=== PATIENT | female | born 1945 | race Caucasian/White ===

== ENCOUNTER → 2016-07-31 | Day surgery (SDC) | payer OTHER ==
[2016-07-30 08:32] VITALS: Ht 154.9 cm; Wt 86.4 kg
[~2016-07-31] VITALS: Ht 154.9 cm; Wt 86.4 kg
[~2016-07-31] MED LIST: 500ML BSS 0.3ML EPI 1:1000PF IRRIG ONE; ACETAMINOPHEN 325 MG TAB PO PRN; AMVISC PLUS 0.8ML SYRINGE INT OCU ONE; ASPI325T45 PO; BSS FLUSH ONE; CALTRATE PO; ENDOCOAT 0.85ML SYRINGE INT OCU ONE; EpINEphrine INJ 1MG/ML AMP 1 MG/ML AMP ONE; FENTANYL CITRATE INJ 50 MCG/1 ML 2 ML VIAL ONE; HYDR25TA4 PO; HydrALAZINE HCL 20 MG/ML VIAL ONE; KETO0.5S33 OPL; LACTATED RINGER'S 1000ML 500 ML IV SCH; LIDOCAINE 4% OP SOLN DROP CHARGE ONE; LIDOCAINE 4% OP SOLN DROP CHARGE OPL SCH; LIDOCAINE HCL 1% MPF 2 ML VIAL ONE; LOSA1TAB38 PO; MIDAZOLAM HCL 1 MG/ML 2ML VIAL ONE; MIX: 4ML BSS 1ML EPI 1:1000 PF TOP ONE; MOXIFLOXACIN OPH SOLN PER DROP CHARGE ONE; OMEG10007 PO; POTA10CA28 PO; POVIDONE-IODINE OP SOLN 30 ML BTL ONE; PRED1SUS3 OPL; PRLSR20 PO; PROPARACAINE 0.5% OP SOLN PER DROP CHARGE OPL SCH; SIMV20TA2 PO; TOBRAMYCIN/DEXAMETHASONE OPH OINT PER APPLN CHARGE ONE; [UNRECOGNIZED DRUG - OTHER] PO
[2016-07-31] MEDS: PHENYLEPHRINE HCL 2.5% OP SOLN PER DROP CHARGE OPL SCH ×3 (07:26→07:36)
[2016-07-31] MEDS: TROPICAMIDE 1% OP SOLN PER DROP CHARGE OPL SCH ×3 (07:27→07:37)
[2016-07-31] MEDS: CYCLOPENTOLATE HCL 1% OP SOLN PER DROP CHARGE OPL SCH ×3 (07:28→07:38)
[2016-07-31] MEDS: MOXIFLOXACIN OPH SOLN PER DROP CHARGE OPL SCH ×3 (07:29→07:39)
--- NOTE | 2016-07-31 07:32 | History & Physical Bridge - SC ---
H&P Re-Evaluation Bridge Note: I have examined the patient, reviewed the History & Physical and in the interval since the performance of the History & Physical I have noted the following changes of clinical significance: No changes noted. Left eye cataract surgery.
--- NOTE | 2016-07-31 08:47 | [facility] Post Operative Brief Note ---
Immediate Operative Summary Operative Date July 31, 2016. Pre-Operative Diagnosis Left Eye Cataract Post-Operative Diagnosis Same Procedure(s) Performed Left Cataract Phacoemulsification With Intraocular Lens Implant Surgeon Dr. Suze Dennison Aircraft Structural Repair Mechanic Surgeon(s) none Estimated Blood Loss 0 Findings left cataract Specimens None Complication(s) None Disposition
--- NOTE | 2016-07-31 08:48 | [facility] Operative Report ---
Operative Report Date of Service July 31, 2016. Operative Report Phaco with monofocal IOL DATE OF OPERATION: 07/31/16 PREOPERATIVE DIAGNOSIS: Senile nuclear cataract, left eye POSTOPERATIVE DIAGNOSIS: Senile nuclear cataract, left eye PROCEDURE PERFORMED: Phacoemulsification with intraocular lens implantation, left eye SURGEON: Dr. Diaz Dennison ANESTHESIA: Topical with 1% intracameral lidocaine and monitored anesthesia care COMPLICATIONS: None DESCRIPTION OF PROCEDURE: After positively identifying the patient both verbally and by wristband in the preoperative area, the left eye was marked as the operative eye. The patient was then brought back to the operating room by the anesthesia and nursing staff where they were given a drop of Lidocaine and betadine into the operative eye. They were then sterilely prepped and draped in the standard fashion typical for ophthalmic surgery. Steri-strips were placed along the upper eyelids to keep the lashes back, and a lid speculum was placed into the operative eye. At this point, a documented time out was performed with members of the ophthalmology, nursing, and anesthesia staffs all agreeing upon the correct patient, correct location for surgery, correct procedure, and correct type and power of intraocular lens to be implanted. The microscope was then swung into position. First, a paracentesis wound was made using a sideport blade. Then, in sequence, 1% preservative-free lidocaine followed by Endocoat viscoelastic was injected into the anterior chamber. Next , the main incision was made with a keratome blade in triplanar fashion. A sharp cystotome was introduced into the eye and used to create a tear in the anterior capsule, which was directed into a continuous curvilinear capsulorrhexis using Utrata forceps. Hydrodissection was then performed with BSS on a flat-tip cannula. Next, the phacoemulsification handpiece was introduced into the eye and used to remove the nucleus in a murhdl-cen-wimpvck fashion. This was done without complication and then the irrigation-aspiration handpiece was introduced into the eye and used to remove all remaining cortical and epinuclear material. Amvisc was then injected into the anterior chamber as well as into the capsular bag and using the lens injector system, an MX60 19.0 D lens, serial number [id number], and expiration date 12/2018 was injected into the capsular bag and rotated into the correct position. Next, the irrigation- aspiration handpiece was used to remove all remaining Amvisc. BSS was used to hydrate the main wound, and then BSS was injected into the paracentesis site to reach physiologic pressure and then the main wound was checked and found to be watertight after adding Resure sealant. The patient was given drops of Vigamox and Tobradex ointment into the operative eye, and then the surrounding area was cleaned and dried. A clear plastic shield was placed over the eye and the patient was then sat up and taken from the operating room by the anesthesia staff having tolerated the procedure well and suffering no complications. DISPOSITION: The patient was returned to the recovery room in stable condition. I attest to the content of the Intraoperative Record and any orders documented therein. Any exceptions are noted below.
[2016-07-31 08:49] VITALS: TEMP 36.3
--- NOTE | 2016-07-31 08:49 | Discharge Instructions-SurgCtr ---
Discharge Instructions Date of Service July 31, 2016. Visit Reason for Visit: Left Cataract Discharge Discharge Diagnosis / Problem: left cataract Discharge Goals Goal(s): Decrease discomfort, Improve function Activity Recommendations Activity Limitations: as noted below Anesthesia . Post Anesthesia Instructions: If you have had General Anesthesia or IV Sedation: * Do not drive today. * Resume driving when surgeon permits. * Do not make important decisions or sign legal documents today. * Call surgeon for: 1. Temperature elevations greater than 101 degrees F. 2. Uncontrollable pain. 3. Excessive bleeding. 4. Persistent nausea and vomiting. 5. Medication intolerance (nausea, vomiting or rash). * For nausea and vomiting use only clear liquids such as: tea, soda, bouillon until nausea subsides, then gradually increase diet as tolerated. * If you have any concerns or questions, call your surgeon's office. If physician is unavailable and it is an emergency, call 911 or go to the nearest emergency room. . Instructions / Follow-Up Instructions / Follow-Up ACTIVITY RECOMMENDATIONS: * Light activities. * You may walk outside, read, watch television. * You may notice redness on the white part of the eye and some blurry vision - this is normal. MEDICATIONS: Resume previous medications unless instructed otherwise by your surgeon. Start all eye drops at 11 am today: * Eye drops (today): Prednisone - one drop in operative eye every 2 hours while awake Ofloxacin - one drop in operative eye every 2 hours while awake Ketorolac - one drop in operative eye four times daily SPECIAL CARE INSTRUCTIONS: * Tape plastic shield over eye to sleep at night. Call your doctor at with any concerns or problems. FOLLOW UP VISIT: Follow-up with Dr Dennison at [place] office as scheduled. Diet Recommendations Home Diet: no limitations Procedures Procedures Performed: Left Cataract Phacoemulsification With Intraocular Lens Implant Pending Studies Studies pending at discharge: no Medical Emergencies . Who to Call and When: Medical Emergencies: If at any time you feel your situation is an emergency, please call 911 immediately. . Non-Emergent Contact Non-Emergency issues call your: Surgeon . . "Provider Documentation" section prepared by Diaz Dennison. .
--- NOTE | 2016-07-31 09:05 | Anesthesia Progress Nt - [facility] ---
Anesthesia Post Op Note Date & Time July 31, 2016 at 09:05 Vital Signs Pain Intensity: 0 Vital Signs Past 12 Hours Date Time Temp Pulse Resp B/P Pulse Ox O2 Delivery O2 Flow Rate FiO2 07/31/16 08:49 36.3 64 16 134/64 98 Room Air 07/31/16 07:16 36.7 61 20 177/90 100 Room Air Notes Mental Status: alert / awake / arousable, participated in evaluation Pt Amnestic to Procedure: No (recall as expected) Nausea / Vomiting: adequately controlled Pain: adequately controlled Airway Patency, RR, SpO2: stable & adequate BP & HR: stable & adequate Hydration State: stable & adequate Anesthetic Complications: no major complications apparent Pt doing well.
[2016-07-31 09:15] VITALS: BP 130/62; PULSE 70; O2SAT 97
== END | disposition home or self-care (01) ==
LOC: X.SURG 07:02
PROVIDERS: ATTEND Ophthalmology
DX: H25.12 Age-related nuclear cataract, left eye (principal); I11.9 Hypertensive heart disease without heart failure; E78.00 Pure hypercholesterolemia, unspecified; Z83.3 Family history of diabetes mellitus; Z83.511 Family history of glaucoma; Z79.82 Long term (current) use of aspirin; G47.33 Obstructive sleep apnea (adult) (pediatric); M19.90 Unspecified osteoarthritis, unspecified site; Z90.49 Acquired absence of other specified parts of digestive tract; K21.9 Gastro-esophageal reflux disease without esophagitis; E66.9 Obesity, unspecified

== ENCOUNTER → 2016-08-14 | Day surgery (SDC) | payer OTHER ==
[2016-08-07 15:18] VITALS: Ht 154.9 cm; Wt 86.4 kg
[~2016-08-14] VITALS: Ht 154.9 cm; Wt 86.4 kg
[~2016-08-14] MED LIST changes: +ATROPINE SULFATE 0.1 MG/ML 5ML SYR IV PRN; +EpHEDrine SULFATE INJ 50 MG/ML AMP IV PRN; +FENTANYL CITRATE INJ 50 MCG/1 ML 2 ML VIAL IV PRN; +FLUMAZENIL 0.1 MG/1 ML 10 ML VIAL IV PRN; +HYDROmorphone INJ 2 MG/ML SYR/VIAL IV PRN; +LABETALOL HCL IV 5 MG/ML 20ML IV PRN; -LIDOCAINE 4% OP SOLN DROP CHARGE OPL SCH; +LIDOCAINE 4% OP SOLN DROP CHARGE OPR SCH; +MEPERIDINE HCL 25 MG/ML CARP IV PRN; +NALOXONE HCL 0.4 MG/1 ML VIAL/CARP IV PRN; +ONDANSETRON INJ 2 MG/ML 2 ML VIAL IV PRN; +ONDANSETRON INJ 2 MG/ML 2 ML VIAL ONE; +PHENYLEPHRINE 100MCG/ML 5ML SYR IV PRN; -PROPARACAINE 0.5% OP SOLN PER DROP CHARGE OPL SCH; +PROPARACAINE 0.5% OP SOLN PER DROP CHARGE OPR SCH
[2016-08-14] MEDS: PHENYLEPHRINE HCL 2.5% OP SOLN PER DROP CHARGE OPR SCH ×3 (09:17→09:27)
[2016-08-14] MEDS: TROPICAMIDE 1% OP SOLN PER DROP CHARGE OPR SCH ×3 (09:18→09:27)
[2016-08-14] MEDS: MOXIFLOXACIN OPH SOLN PER DROP CHARGE OPR SCH ×3 (09:20→09:29)
[2016-08-14] MEDS: CYCLOPENTOLATE HCL 1% OP SOLN PER DROP CHARGE OPR SCH ×3 (09:20→09:28)
--- NOTE | 2016-08-14 10:14 | History & Physical Bridge - SC ---
H&P Re-Evaluation Bridge Note: I have examined the patient, reviewed the History & Physical and in the interval since the performance of the History & Physical I have noted the following changes of clinical significance: No changes noted. Right eye cataract surgery.
--- NOTE | 2016-08-14 11:25 | [facility] Post Operative Brief Note ---
Immediate Operative Summary Operative Date August 14, 2016. Pre-Operative Diagnosis Cataract Right Eye Post-Operative Diagnosis Same Procedure(s) Performed Right Cataract Phacoemulsification With Intraocular Lens Implant Surgeon Dr. Dennison Principal Secretary Surgeon(s) None Estimated Blood Loss 0 Findings right cataract Specimens None Complication(s) None Disposition
--- NOTE | 2016-08-14 11:26 | [facility] Operative Report ---
Operative Report Date of Service August 14, 2016. Operative Report Phaco with monofocal IOL DATE OF OPERATION: 08/14/16 PREOPERATIVE DIAGNOSIS: Senile nuclear cataract, right eye POSTOPERATIVE DIAGNOSIS: Senile nuclear cataract, right eye PROCEDURE PERFORMED: Phacoemulsification with intraocular lens implantation, right eye SURGEON: Dr. Diaz Dennison ANESTHESIA: Topical with 1% intracameral lidocaine and monitored anesthesia care COMPLICATIONS: None DESCRIPTION OF PROCEDURE: After positively identifying the patient both verbally and by wristband in the preoperative area, the right eye was marked as the operative eye. The patient was then brought back to the operating room by the anesthesia and nursing staff where they were given a drop of Lidocaine and betadine into the operative eye. They were then sterilely prepped and draped in the standard fashion typical for ophthalmic surgery. Steri-strips were placed along the upper eyelids to keep the lashes back, and a lid speculum was placed into the operative eye. At this point, a documented time out was performed with members of the ophthalmology, nursing, and anesthesia staffs all agreeing upon the correct patient, correct location for surgery, correct procedure, and correct type and power of intraocular lens to be implanted. The microscope was then swung into position. First, a paracentesis wound was made using a sideport blade. Then, in sequence, 1% preservative-free lidocaine followed by Endocoat viscoelastic was injected into the anterior chamber. Next , the main incision was made with a keratome blade in triplanar fashion. A sharp cystotome was introduced into the eye and used to create a tear in the anterior capsule, which was directed into a continuous curvilinear capsulorrhexis using Utrata forceps. Hydrodissection was then performed with BSS on a flat-tip cannula. Next, the phacoemulsification handpiece was introduced into the eye and used to remove the nucleus in a rulwah-ofp-pklrdfu fashion. This was done without complication and then the irrigation-aspiration handpiece was introduced into the eye and used to remove all remaining cortical and epinuclear material. Amvisc was then injected into the anterior chamber as well as into the capsular bag and using the lens injector system, an MX60 20.0 D lens, serial number [id number], and expiration date 02/2019 was injected into the capsular bag and rotated into the correct position. Next, the irrigation- aspiration handpiece was used to remove all remaining Amvisc. BSS was used to hydrate the main wound, and then BSS was injected into the paracentesis site to reach physiologic pressure and then the main wound was checked and found to be watertight. The patient was given drops of Vigamox and Tobradex ointment into the operative eye, and then the surrounding area was cleaned and dried. A clear plastic shield was placed over the eye and the patient was then sat up and taken from the operating room by the anesthesia staff having tolerated the procedure well and suffering no complications. DISPOSITION: The patient was returned to the recovery room in stable condition. I attest to the content of the Intraoperative Record and any orders documented therein. Any exceptions are noted below.
[2016-08-14 11:27] VITALS: TEMP 36.4
--- NOTE | 2016-08-14 11:27 | Discharge Instructions-SurgCtr ---
Discharge Instructions Date of Service August 14, 2016. Visit Reason for Visit: Cataract Right Eye Discharge Discharge Diagnosis / Problem: right cataract Discharge Goals Goal(s): Decrease discomfort, Improve function Activity Recommendations Activity Limitations: as noted below Anesthesia . Post Anesthesia Instructions: If you have had General Anesthesia or IV Sedation: * Do not drive today. * Resume driving when surgeon permits. * Do not make important decisions or sign legal documents today. * Call surgeon for: 1. Temperature elevations greater than 101 degrees F. 2. Uncontrollable pain. 3. Excessive bleeding. 4. Persistent nausea and vomiting. 5. Medication intolerance (nausea, vomiting or rash). * For nausea and vomiting use only clear liquids such as: tea, soda, bouillon until nausea subsides, then gradually increase diet as tolerated. * If you have any concerns or questions, call your surgeon's office. If physician is unavailable and it is an emergency, call 911 or go to the nearest emergency room. . Instructions / Follow-Up Instructions / Follow-Up ACTIVITY RECOMMENDATIONS: * Light activities. * You may walk outside, read, watch television. * You may notice redness on the white part of the eye and some blurry vision - this is normal. MEDICATIONS: Resume previous medications unless instructed otherwise by your surgeon. Start all eye drops at 1:30 pm today: * Eye drops (today): Prednisone - one drop in operative eye every 2 hours while awake Ofloxacin - one drop in operative eye every 2 hours while awake Ketorolac - one drop in operative eye 4 times daily SPECIAL CARE INSTRUCTIONS: * Tape plastic shield over eye to sleep at night. Call your doctor at with any concerns or problems. FOLLOW UP VISIT: Follow-up with Dr Dennison at [facility] as scheduled. Diet Recommendations Home Diet: no limitations Procedures Procedures Performed: Right Cataract Phacoemulsification With Intraocular Lens Implant Pending Studies Studies pending at discharge: no Medical Emergencies . Who to Call and When: Medical Emergencies: If at any time you feel your situation is an emergency, please call 911 immediately. . Non-Emergent Contact Non-Emergency issues call your: Surgeon . . "Provider Documentation" section prepared by Diaz Dennison. .
[2016-08-14 12:10] VITALS: BP 117/56; PULSE 69; O2SAT 100
--- NOTE | 2016-08-14 12:24 | Anesthesia Progress Nt - [facility] ---
Anesthesia Post Op Note Date & Time August 14, 2016 at 12:24 Vital Signs Pain Intensity: 0 Vital Signs Past 12 Hours Date Time Temp Pulse Resp B/P Pulse Ox O2 Delivery O2 Flow Rate FiO2 08/14/16 12:10 69 20 117/56 100 Room Air 08/14/16 11:27 36.4 77 16 131/60 99 Room Air 08/14/16 09:10 36.6 64 16 191/84 100 Room Air Notes Mental Status: alert / awake / arousable, participated in evaluation Pt Amnestic to Procedure: Yes Nausea / Vomiting: adequately controlled Pain: adequately controlled Airway Patency, RR, SpO2: stable & adequate BP & HR: stable & adequate Hydration State: stable & adequate Anesthetic Complications: no major complications apparent
== END | disposition home or self-care (01) ==
LOC: X.SURG 08:55
PROVIDERS: ATTEND Ophthalmology
DX: H25.11 Age-related nuclear cataract, right eye (principal); I10 Essential (primary) hypertension; E78.00 Pure hypercholesterolemia, unspecified; Z79.899 Other long term (current) drug therapy

== ENCOUNTER 2018-10-07 11:17 | Observation (INO) ==
[~2018-10-07 11:17] MED LIST changes: -500ML BSS 0.3ML EPI 1:1000PF IRRIG ONE; -ACETAMINOPHEN 325 MG TAB PO PRN; -AMVISC PLUS 0.8ML SYRINGE INT OCU ONE; -ASPI325T45 PO; -ATROPINE SULFATE 0.1 MG/ML 5ML SYR IV PRN; -BSS FLUSH ONE; -CALTRATE PO; +CLINDAMYCIN 600 MG/54 ML BAG IV SCH; -ENDOCOAT 0.85ML SYRINGE INT OCU ONE; -EpHEDrine SULFATE INJ 50 MG/ML AMP IV PRN; -EpINEphrine INJ 1MG/ML AMP 1 MG/ML AMP ONE; -FENTANYL CITRATE INJ 50 MCG/1 ML 2 ML VIAL IV PRN; -FENTANYL CITRATE INJ 50 MCG/1 ML 2 ML VIAL ONE; -FLUMAZENIL 0.1 MG/1 ML 10 ML VIAL IV PRN; -HYDR25TA4 PO; -HYDROmorphone INJ 2 MG/ML SYR/VIAL IV PRN; -HydrALAZINE HCL 20 MG/ML VIAL ONE; -KETO0.5S33 OPL; -LABETALOL HCL IV 5 MG/ML 20ML IV PRN; -LACTATED RINGER'S 1000ML 500 ML IV SCH; -LIDOCAINE 4% OP SOLN DROP CHARGE ONE; -LIDOCAINE 4% OP SOLN DROP CHARGE OPR SCH; -LIDOCAINE HCL 1% MPF 2 ML VIAL ONE; -LOSA1TAB38 PO; +LR 15ML/HR IV SCH; -MEPERIDINE HCL 25 MG/ML CARP IV PRN; -MIDAZOLAM HCL 1 MG/ML 2ML VIAL ONE; -MIX: 4ML BSS 1ML EPI 1:1000 PF TOP ONE; -MOXIFLOXACIN OPH SOLN PER DROP CHARGE ONE; -NALOXONE HCL 0.4 MG/1 ML VIAL/CARP IV PRN; -OMEG10007 PO; -ONDANSETRON INJ 2 MG/ML 2 ML VIAL IV PRN; -ONDANSETRON INJ 2 MG/ML 2 ML VIAL ONE; -PHENYLEPHRINE 100MCG/ML 5ML SYR IV PRN; -POTA10CA28 PO; -POVIDONE-IODINE OP SOLN 30 ML BTL ONE; -PRED1SUS3 OPL; -PRLSR20 PO; -PROPARACAINE 0.5% OP SOLN PER DROP CHARGE OPR SCH; -SIMV20TA2 PO; -TOBRAMYCIN/DEXAMETHASONE OPH OINT PER APPLN CHARGE ONE; +VANCOMYCIN HCL 1,000 MG/270 ML BAG IV SCH; -[UNRECOGNIZED DRUG - OTHER] PO
--- NOTE | 2018-10-07 11:26 | History & Physical Bridge Note ---
Date of Service October 07, 2018 History & Physical Bridge Note I have examined the patient, reviewed the History & Physical and in the interval since the performance of the History & Physical I have noted the following changes of clinical significance: pt for dual chamber ppm; rediscussed procedure and consents obtained
--- NOTE | 2018-10-07 11:26 | Pre Anesthesia Assessment ---
Date of Service October 07, 2018 Pre Sedation Assessment Cardiovascular RRR, no murmur, no edema Respiratory normal respiratory effort, lungs clear to auscultation Pre-Sedation Airway Assessment Smoking Status: Never smoker Hx Sleep Apnea: No Hx Difficult Intubation: No Short, Thick Neck: No Thyromental Distance: < 3.5 Finger Breadths Oral Cavity: + WNL Mallampati Class: III ASA: ASA3 NPO Status Date of Last Intake of Fluids: 10/06/18 Date of Last Intake of Solid Food: 10/06/18 Procedure Planning Contraindications for Sedation: none Current Medications Reviewed: Yes Notes The planned sedation has been discussed with the patient. Informed Consent was obtained. I have identified the patient, determined the appropriateness of sedation and have assessed the patient immediately prior to the procedure. All medicine(s) and interventions are by my order.
[2018-10-07 12:07] LABS: INR 1.6 (0.9-1.1); Prothrombin Time 15.9 Seconds (9.0-12.0)
[2018-10-07] MEDS ORDERED: BACITRACIN INJ 50,000 UNIT VIAL ONE (12:40)
[2018-10-07] MEDS ORDERED: BUPIVACAINE 0.25% 30 ML VIAL ONE (12:40)
[2018-10-07] MEDS ORDERED: LIDOCAINE HCL 1% 20 ML VIAL ONE (12:40)
[2018-10-07] MEDS ORDERED: MIDAZOLAM HCL 5 MG/ML 1 ML VIAL ONE (12:58)
[2018-10-07] MEDS ORDERED: fentaNYL citrate 100 MCG/2 ML VIAL ONE ×2 (12:58→13:30)
[2018-10-07] MEDS ORDERED: MIDAZOLAM HCL 1 MG/ML 2ML VIAL ONE (13:30)
--- NOTE | 2018-10-07 14:19 | Operative Report ---
Post Operative Report Pre & Post Diagnosis TBS/SSS Operation Date: 10/07/18 15:00 <No data on this case meets the specified criteria> Procedure Operation Date: 10/07/18 15:00 Actual Procedures p Pacer with A/V Leads (Dual)(Left) - Bailee Cho DO s Venogram, Unilateral - Bailee Cho DO Surgeon Bailee Cho, Preschool Disability Teacher none Estimated Blood Loss 25 Findings Consistent with Post-Op Diagnosis Specimens None Description of Procedure see official report I attest to the content of the Intraoperative Record and any orders documented therein. Any exceptions are noted below.
--- NOTE | 2018-10-07 14:19 | Post Anesthesia Assessment ---
Date of Service October 07, 2018 Post Sedation Assessment Vital Signs Temp Pulse Resp BP Pulse Ox 10/07/18 11:55 36.6 C 64 14 157/71 H 99 Recovery Score Activity: Moves 4 extremities Respiration: Deep Breath/Cough Circulation: +/-20% PreAnes Value Consciousness: Fully Awake Oxygen Saturation: > 92% On Room Air Discharge Sedation Level of Care: Fast Track Phase II Post Sedation Plan On clinical assessment, the patient appears to have tolerated the sedation without complications. Patient is recovering as anticipated. Patient will continue to be monitored by nursing and may be discharged when sedation discharge criteria are met per below protocol. Upon Completions of procedure and additional 15 minutes continue every 5 minute vital signs and the P.A.R. score; then discharge to a Phase I or Fast Track to Phase II per the following guidelines: * Discharge Patient to appropriate Phase II area if PAR is 8 or greater or return to pre- procedure baseline. The post - procedure orders will be as directed. * If PAR score is less than 8 or not return to pre-procedure baseline then patient will follow Phase I monitoring till PAR is reached for Phase II. The Phase I may be done in procedure room or may call to secure a Phase I area. * If naloxone or flumazenil are used for reversal, hold in Phase I for continued monitoring from when last reversal dose was given for a minimum of 60 minutes or longer pending the nurse and/or physician discretion of patient condition before discharge to Phase II. Please call the Sedation Physician to re-evaluate and complete post-note for discharge to Phase II area. Do NOT discharge from procedure sedation or Phase 1 until post- sedation evaluation note is complete by procedure /sedation MD Sedation Discharge Instructions to be given to the patient at discharge to home.
[2018-10-07] MEDS ORDERED: FLUTICASONE PROPIONATE NA SPR 16 GM BTL NAE PRN (14:23)
[2018-10-07] MEDS ORDERED: LORATADINE 10 MG TAB PO PRN (14:23)
[2018-10-07] MEDS ORDERED: KETOROLAC 0.5% OP SOLN 5 ML BTL OPL PRN (14:23)
--- NOTE | 2018-10-07 14:26 | Discharge Summary ---
Date of Service October 08, 2018 Admission HPI Per Admitting Provider pt admitted for elective ppm due to TBS and SSS Admission Exam Per Admitting Provider aaox3, NAD NC/AT, EOMI Supple No JVD Nrl S1/S2, No murmur CTA b/l no w/r/r soft nt/nd no LE edema b/l skin intact no focal deficits Principal Diagnosis TBS s/p dual chamber ppm Discharge Exam aaox3, NAD NC/AT, EOMI Supple No JVD Nrl S1/S2, No murmur CTA b/l no w/r/r soft nt/nd no LE edema b/l skin intact no focal deficits left pectoral incision intact, no hematoma mild ecchymosis Discharge Data Allergies Allergy/AdvReac Type Severity Reaction Status Date / Time amoxicillin Allergy Unknown RASH Verified 10/06/18 14:39 erythromycin base Allergy Unknown RASH Verified 10/06/18 14:39 nitrofurantoin Allergy Unknown RASH Verified 10/06/18 14:39 sulfamethizole Allergy Unknown RASH Verified 10/06/18 14:39 adhesive AdvReac Unknown DIFFICULTY Verified 10/06/18 14:39 REMOVING AND LOCAL REDNESS Procedures Performed Operation Date: 10/07/18 15:00 Actual Procedures p Pacer with A/V Leads (Dual)(Left) - Bailee Cho DO s Venogram, Unilateral - Bailee Cho DO Ordered Studies CXR: No PTX, leads in position ECG: AP-VS PPM Interrogation POD#1: normal function and stable lead testing 10/07/18 07:15 EP Lab Images for PACS ONCE Hospital Course (1) Tachy-loli syndrome: (2) PAF (paroxysmal atrial fibrillation): Total Time Total Time Spent Total Time Spent (In Minutes): 30 Total Time Includes: Examination of the Patient, Discharge Planning, Medication Reconciliation and Other Discharge Plan Discharge Items Reason For Visit: Tachy/Loli Syndrome Discharge Diagnosis: TBS s/p dual chamber ppm Condition: Good Discharge Goals: Improve function Activity: As commented below Activity Comment: do not lift the left elbow over the left shoulder for 1 month Lifting: No more than 10 pounds Lifting Comment: do not lift more than 10 pounds for 1 week Bathing: Keep incision dry Bathing Comment: can shower monday 10/09 let water run over the incision do not scrub it Sexual Activity: After two weeks Driving/Machine Use: Resume 1 day after discharge Call non-emergency contact if: you have any medication questions Follow-up/Referrals: Kandi Daley MD [Primary Care Provider] - [facility] Provider Instructions: device and wound check as scheduled next week in [facility] device clinic if you notice any swelling or concerns at the incision area call my office immediately Prescriptions: New metoprolol succinate 50 mg Tablet Extended Release 24 Hr 50 mg PO QAM Qty: 30 RF: 0 Continued CALTRATE 1000 + D 1 tab PO QAM Qty: 0 RF: 0 Fish Oil (Sedona-3) 1 EA capsule 1 cap PO QAM Qty: 0 RF: 0 HYDROCHLOROTHIAZIDE (HCTZ) 25 MG tablet 1.5 tabs PO QAM Qty: 0 RF: 0 LOSARTAN POTASSIUM (COZAAR) 100 MG tablet 100 mg PO QAM Qty: 0 RF: 0 OMEPRAZOLE (PRILOSEC) 20 MG CONTR REL CAP 20 mg PO QAM Qty: 0 RF: 0 Potassium Chloride (Micro-K Ext Rel) 10 MEQ CONTR REL CAP 3 tabs PO BID Qty: 0 RF: 0 Simvastatin (Zocor) 20 MG tablet 20 mg PO QPM Qty: 0 RF: 0 KETOROLAC TROMETHAMINE (OPHTH) (ACULAR OPH) 0.5 % SOLTAB 1 drp OPL DAILY PRN (Reason: Dry Eyes) Qty: 5 RF: 3 warfarin 2.5 mg Tablet 2.5 mg PO DAILY RF: 0 amlodipine 2.5 mg Tablet 2.5 mg PO DAILY RF: 0 warfarin 1 mg Tablet 1.25 mg PO 2XWK RF: 0 fluticasone propionate [Flonase Allergy Relief] 50 mcg/actuation [place],Suspension 2 spray INTRANASAL DAILY PRN (Reason: Allergy Symptoms) RF: 0 loratadine [Claritin] 10 mg Tablet 10 mg PO DAILY PRN (Reason: Allergy Symptoms) RF: 0 Stand-Alone Forms: [facility] Admission Data Admit Date/Time: 10/07/18 13:38 Attending Provider: Bailee Cho Admit Provider: Bailee Cho Primary Care Provider: Kandi Daley Service: Telemetry
[2018-10-07] MEDS: ACETAMINOPHEN 325 MG TAB PO PRN ×2 (14:53→21:22)
[2018-10-07 15:46] LABS: Hematocrit (blood only) 38.7 % (37-47); Hemoglobin 13.2 g/dL (12.0-16.0); Mean Corpuscular Volume 88.6 fL (80-100); Mean Platelet Volume 10.7 fL (7.4-10.4); Nucleated RBC # (auto) 0.04 K/uL (0-0); Nucleated RBC % (auto) 0.7 %; Platelet Count 172 K/uL (130-400); RDW Coefficient of Variation 13.2 % (11.5-14.5); RDW Standard Deviation 42.6 fL (36.4-46.3); Red Blood Count 4.37 M/uL (4.2-5.4); White Blood Count 5.05 K/uL (4.8-10.8)
[2018-10-07] MEDS: METOPROLOL SUCC 50MG EXT REL TAB PO SCH (15:48)
[2018-10-07 15:52] LABS: Mean Corpuscular Hgb Conc 34.1 g/dL (32-36)
[2018-10-07] MEDS ORDERED: WARFARIN SOD 2.5 MG TAB PO SCH (17:00)
[2018-10-07] MEDS: POTASSIUM CHLORIDE 10 MEQ TABCR PO SCH (20:57)
[2018-10-07] MEDS ORDERED: SIMVASTATIN 20 MG TAB PO SCH (21:00)
--- NOTE | 2018-10-08 06:27 | XRay Report ---
XR chest 2V routine HISTORY: 72 years-old Female post implant status post placement of a left subclavian pacer COMPARISON: None available TECHNIQUE: PA and lateral views of the chest FINDINGS: Cardiomediastinal and hilar silhouettes are within normal limits. Left subclavian pacer is noted with leads overlying the expected locations of the right atrium and right ventricle. Calcification of the thoracic aortic arch. No postprocedural pneumothorax. No pleural effusion, focal airspace consolidat ion or overt pulmonary edema. Cholecystectomy. Degenerative changes of the shoulders and spine. IMPRESSION: Status post placement of a left subclavian pacer. No postprocedural pneumothorax. The above report was generated using voice recognition software. It may contain grammatical, syntax o r spelling errors. Electronically signed by: Ian Kuhn M.D. 10/08/2018 6:25 AM
[2018-10-08 07:17] LABS: INR 1.5 (0.9-1.1); Prothrombin Time 15.2 Seconds (9.0-12.0)
[2018-10-08] MEDS: POTASSIUM CHLORIDE 10 MEQ TABCR PO SCH (08:21)
[2018-10-08] MEDS: METOPROLOL SUCC 50MG EXT REL TAB PO SCH (08:23)
[2018-10-08] MEDS ORDERED: OMEGA-3 (PURIFIED FISH OIL) 1 GM CAP PO SCH (09:00)
[2018-10-08] MEDS ORDERED: PANTOprazole 40 MG TAB PO SCH (09:00)
[2018-10-08] MEDS ORDERED: CALCIUM 600MG + VIT D 400 IU TAB PO SCH (09:00)
[2018-10-08] MEDS ORDERED: AMLODIPINE BESYLATE 5 MG TAB PO SCH (09:00)
[2018-10-08] MEDS ORDERED: hydroCHLOROthiazide 25 MG TAB PO SCH (09:00)
[2018-10-08] MEDS ORDERED: LOSARTAN POTASSIUM 50 MG TAB PO SCH (09:00)
[2018-10-09] MEDS ORDERED: WARFARIN SOD 1.25 MG TAB PO SCH (16:00)
--- NOTE | 2018-10-10 06:51 | Operative Report ---
DATE OF OPERATION: 10/07/2018 DATE OF PROCEDURE: 10/07/2018 PREOPERATIVE DIAGNOSIS: Tachybrady syndrome. POSTOPERATIVE DIAGNOSIS: Tachybrady syndrome. PROCEDURE: Dual chamber rate responsive implantable cardiac defibrillator under fluoroscopic guidance along with peripheral venogram. SURGEON: Bailee Cho DO ASSISTANTS: None. ANESTHESIA: Monitored conscious sedation administered under my supervision by Caleb Orantes. Start time 1300 and end time 1406. Total of 5 mg of Versed, 100 mcg of fentanyl. INTRAVENOUS FLUIDS: 50 mL. IV CONTRAST: 10 mL. ANTIBIOTICS: 600 mg of clindamycin. BLOOD LOSS: 20 mL. URINE OUTPUT: Not applicable. SPECIMENS: None. FINDINGS: See below. DRAINS: None. CONDITION: Stable. COMPLICATIONS: None. INDICATIONS: This is a 72-year-old female with past medical history for paroxysmal atrial fibrillation initially found during a dobutamine stress echo in May of 2017, but then she was recently admitted to [facility] in August of 2018 secondary to recurrent atrial fibrillation but unable to give AV crys macario secondary to sinus node dysfunction, hyperlipidemia, hypertension, obstructive sleep apnea on CPAP and obesity. With the evidence of tachybrady syndrome and not sinus node dysfunction, she was recommended a dual chamber pacemaker. CONSENT: Consent was obtained prior to the patient going into electrophysiology lab. The patient was informed of the risks, benefits and alternative procedure. Risks include but not limited to sudden cardiac , cardiac arrhythmias, cerebrovascular accident, myocardial infarction, injury to the blood vessels, chamber of the heart, lung, bleeding, and infection. The patient understood these risks and agreed to the procedure as planned. Informed consent was obtained. DESCRIPTION OF THE PROCEDURE: The patient was brought into electrophysiology lab in a fasting state. She was connected to continuous youth nutritional monitor. A timeout was performed to ensure patient identity and procedure correctly. The patient was prepped and draped over the left infraclavicular space in normal surgical standard fashion. Monitored conscious sedation was given throughout the procedure for patient's comfort level. Kuna precautions maintained throughout the procedure. A 10 mL of 1% lidocaine, bupivacaine mixture were given in the left deltopectoral groove. Incision was made in left deltopectoral groove. Blunt dissection performed down to identify cephalic vein; however, none could be identified, so a peripheral venogram using 10 mL of IV contrast diluted in 10 mL of saline was performed to identify the axillary vein. Then venous access was obtained through an axillary stick without any complications. The guidewire was inserted without any resistance. An 8-[place] sheath was inserted over the guidewire without any resistance. Guidewire and dilator removed. The right ventricular lead was then advanced into right ventricle and positioned into right ventricular apex under fluoroscopic guidance. There was adequate pacing and sensing thresholds and no diaphragmatic stimulation with high output pacing. The 8-[place] sheath was peeled away and lead was fixated to pectoralis muscle using 0 silk suture. A second 8-[place] sheath was inserted over the retained guidewire without any resistance. Guidewire and dilator removed. The right atrial lead was then advanced into right atrium and positioned into atrial appendage under fluoroscopic guidance. There was adequate pacing and sensing thresholds and no diaphragmatic stimulation with high output pacing. The 8-[place] sheath was peeled away and lead was fixated to pectoralis muscle using 0 silk suture. Blunt dissection was used to perform a pacemaker pocket over the pectoralis muscle within the pectoralis fascia. The pocket was flushed with copious amounts of bacitracin saline wash and inspected for hemostasis. The pulse generator was then attached to leads, making sure that the pins were in appropriate position, passed set screw and set screws were all tightened. Pulse generator was then placed in the pocket, making sure that the leads were lying flat beneath the device. A stay stitch using 0 silk suture was used to secure the device to pectoralis muscle. Gloria stat was placed in the pocket as patient is going back on Coumadin. The incision was then closed in 3-layer fashion with 2-0 Vicryl interrupted suture followed by 3-0 Vicryl interrupted suture followed by 4-0 Monocryl running stitch and Dermabond was applied. EQUIPMENT: 1. Pulse generator is a Medtronic Gaby XT DR NORMAN Kendall [id number], serial #[id number]. 2. Right atrial lead Medtronic 5076-52 cm, serial #[id number]. 3. Right ventricular lead, Medtronic 5076-58 cm, serial #[id number]. INTRAOPERATIVE TESTIN. Right atrial lead: P waves 1.9 millivolts, impedance 608 ohms, threshold 0.5 volts at 0.4 milliseconds. 2. Right ventricular lead: R-wave 10 millivolts, impedance 589 ohms, threshold 0.4 volts at 0.4 milliseconds. FINAL MEASUREMENTS THROUGH THE DEVICE: 1. Right atrial lead: P waves 1 millivolt, impedance 608 ohms, threshold 0.75 volts at 0.4 milliseconds. 2. Right ventricular lead: R waves 8.8 millivolts, impedance 570 ohms, threshold 0.5 volts at 0.4 milliseconds. FINAL PARAMETERS: MVP-R 60/130, right atrial amplitude 3.5 volts, pulse width 0.4 milliseconds, sensitivity 0.3 millivolts. Right ventricular amplitude 3.5 volts, pulse width 0.4 milliseconds, sensitivity 1.2 millivolts. IMPRESSION: Successful implantation of a dual chamber rate responsive permanent pacemaker under fluoroscopic guidance secondary to tachybrady syndrome. PLAN: Monitor patient overnight, 12-lead ECG, chest x-ray. She is not allowed to lift left elbow or left shoulder for 1 month. She cannot lift more than 10 pounds with the left arm for 2 weeks. She can shower in 2 days, let water run over incision, do not scrub it. She should follow up in our [place] office for device and wound check in 1 week's time. We will also start her on metoprolol daily and she can restart her anticoagulation. I attest to the content of the Intraoperative Record and any orders documented therein. Any exception s are noted below.
== END 2018-10-08 09:04 | disposition home or self-care (01) ==
LOC: ASU 11:17 → 2S 11:17

== ENCOUNTER 2020-07-26 08:52 | Inpatient (IN) ==
--- NOTE | 2020-06-27 12:14 | PAT Medication Instructions ---
Medication Instructions Date of Service June 27, 2020 Home Medications Medication Instructions Recorded metoprolol succinate 50 mg PO QAM #30 tab 10/07/18 CALTRATE 1000 + D 1 tab PO QAM Fish Oil ([place]-3) 1 cap PO QAM amlodipine 2.5 mg PO QAM fluticasone propionate [Flonase Allergy Relief] 2 spray INTRANASAL DAILY PRN warfarin 2.5 mg PO QPM metoprolol succinate 50 mg PO QAM atorvastatin 20 mg PO HS hydrochlorothiazide 37.5 mg PO QAM losartan 100 mg PO QAM potassium chloride 30 meq PO BID ASK your prescriber and surgeon warfarin 2.5 mg PO QPM STOP taking 2 weeks before surgery If surgery is within 2 weeks, stop taking as soon as possible. Fish Oil ([place]-3) 1 cap PO QAM DO NOT take the morning of surgery CALTRATE 1000 + D 1 tab PO QAM hydrochlorothiazide 37.5 mg PO QAM losartan 100 mg PO QAM potassium chloride 30 meq PO BID Take morning of surgery With a small sip of water, OTHERWISE NOTHING TO EAT OR DRINK AFTER MIDNIGHT: amlodipine 2.5 mg PO QAM fluticasone propionate [Flonase Allergy Relief] 2 spray INTRANASAL DAILY PRN (if needed) metoprolol succinate 50 mg PO QAM Take evening before surgery fluticasone propionate [Flonase Allergy Relief] 2 spray INTRANASAL DAILY PRN (if needed) atorvastatin 20 mg PO HS potassium chloride 30 meq PO BID Other Notes If you have any questions please call us at [phone] or [phone] or [phone] or [phone]
--- NOTE | 2020-06-28 15:19 | Anesthesiology Consultation ---
Date of Service June 28, 2020 Assessment & Plan (1) Encounter for pre-operative examination: COVID Status: As of 06/28 assessment, patient denies travel to endemic area, known exposure/sick contacts, or symptoms of COVID19. Patient instructed that they and their household members must follow strict social distancing guidelines, wear a mask in public and avoid travel/events/gatherings for 14 days prior to surgery. Preoperative COVID19 testing to be completed prior to surgery per surgeon's arrangements (pt is aware). Patient made aware to self-isolate as much as possible between COVID testing and surgery. Pt is fully vaccinated. Cardiology clearance 06/26/20: "Will do a pharmacologic nuclear stress test for further preoperative cardiac evaluation. Otherwise she is stable from a cardiac perspective at today's visit. Her left upper extremity tremor did improve with discontinuation of amiodarone. We will continue to monitor her AFib burden on device checks. We will see her back in 6 months." Stress test done 07/06/20 negative for ischemia. PCP clearance 07/03/20: "Cleared for surgery with Dr. Tripathi. Spoke with cardiology, can hold her Coumadin for 5 days before surgery, no bridge needed, restart [id number] after surgery." Patient has L chest wall pacer, 97% paced on last pacer transmission. For L TSA. Will request Medtronic rep be present AM DOS. OR aware. Chart Review Chart Review: Acceptable Risk for Surgery and Patient seen in Pre Admission Testing Teaching & Discussion Instructed NPO after midnight before surgery, except medications with 15 cc of water. Medication instructions provided according to the PAT guidelines. History Surgery Operation Date: 07/26/20 09:25 Proposed Procedures p Left Shoulder Reverse Total Arthroplasty(Left) - Cachorro Tripathi MD Height/Weight Height: 5 ft 1 in Weight: 82.9 kg Allergies Allergy/AdvReac Type Severity Reaction Status Date / Time amoxicillin Allergy Unknown RASH Verified 10/06/18 14:39 erythromycin base Allergy Unknown RASH Verified 10/06/18 14:39 nitrofurantoin Allergy Unknown RASH Verified 10/06/18 14:39 sulfamethizole Allergy Unknown RASH Verified 10/06/18 14:39 adhesive AdvReac Unknown DIFFICULTY Verified 10/06/18 14:39 REMOVING AND LOCAL REDNESS Medications Home Medications Medication Instructions Recorded Confirmed Last Taken CALTRATE 1000 + D 1 tab PO QAM #0 07/30/16 06/26/20 Unknown Fish Oil ([place]-3) 1 cap PO QAM #0 07/30/16 06/26/20 Unknown amlodipine 2.5 mg PO QAM 10/06/18 06/26/20 Unknown fluticasone propionate [Flonase 2 spray INTRANASAL DAILY PRN 10/06/18 06/26/20 Unknown Allergy Relief] warfarin 2.5 mg PO QPM 10/06/18 06/26/20 Unknown metoprolol succinate 50 mg PO QAM #30 tab 10/07/18 06/26/20 Unknown atorvastatin 20 mg PO HS 06/26/20 06/26/20 Unknown hydrochlorothiazide 37.5 mg PO QAM 06/26/20 06/26/20 Unknown losartan 100 mg PO QAM 06/26/20 06/26/20 Unknown potassium chloride 30 meq PO BID 06/26/20 06/26/20 Unknown Past Medical History Medical History (Updated 06/28/20 @ 16:54 by Kumar Castellano) Chronic rhinitis Dyslipidemia Hypertension Osteoarthritis Osteopenia Pacemaker Follows with [facility] Paroxysmal A-fib Per cardiology notes, "diagnosed Fall 2017 started on coumadin [id number] 3 (Age, female, HTN); hospitalized 08/2018 due to AF; started on toprol after ppm; but continues to have a lot of pAF so started on amiodarone 11/12/2018- stopped 01/2020 due to tremors and elevated T4" Sleep apnea cpap Tachy-loli syndrome S/P PPM placement by Dr Cho 09/2018 (medtronic) Exercise / Class Metabolic Activity III < 4 Walking/Shop/Light housework (Denies SOB or CP with ambulation on one level, does not do stairs) Past Surgical History Surgical History (Updated 06/28/20 @ 16:51 by Kumar Castellano) History of cataract surgery History of cholecystectomy History of colonoscopy History of dilatation and curettage History of endoscopy Status post biventricular cardiac pacemaker insertion 10/07/18, Medtronic. Past Anesthesia History No Hx of Anesthesia Complications (other than 'hyperactivity' post op after D+C) and No Family Hx of Anesthesia Complications History of PONV No Hx of PONV and No Hx of Motion Sickness Social History Smoking Status: Never smoker Do You Dip or Chew Tobacco: No Hx Alcohol Use: No Hx Substance Use: No substance use type: does not use Review of Systems Pt denies any recent chest pain, shortness of breath, palpitations, cough, fever, URI, or uncontrolled acid reflux. Physical Exam Vital Signs BP: 124/76 P: 60bpm SPO2: 98% RA T: 97.9 F R: 16 ENMT Mouth: no dental restorations, no chipped teeth and no loose teeth Thyromental Distance: > or= 3.5 Finger Breadths Mallampati Class: I Neck + short neck and + limited neck extension Respiratory normal respiratory effort, lungs clear to auscultation Cardiovascular RRR, no murmur, no edema Vessels: no carotid bruit Testing Laboratory Results 06/28/20 15:33 06/28/20 15:33 PT 23.9 Seconds (9.0-12.0) H 06/28/20 15:33 INR 2.5 (0.9-1.1) H 06/28/20 15:33 APTT 40.6 Seconds (21.0-31.0) H 06/28/20 15:33 Hemoglobin A1c 5.7 % (4.5-5.6) H 06/28/20 15:33 Urine Color Yellow 06/28/20 15:33 Urine Appearance Clear (Clear) 06/28/20 15:33 Urine pH 7.0 (4.5-7.5) 06/28/20 15:33 Ur Specific [place] 1.016 (1.000-1.030) 06/28/20 15:33 Urine Protein Negative (Negative) 06/28/20 15:33 Urine Glucose (UA) Negative (Negative) 06/28/20 15:33 Urine Ketones Negative (Negative) 06/28/20 15:33 Urine Nitrite Negative (Negative) 06/28/20 15:33 Ur Leukocyte Esterase Negative (Negative) 06/28/20 15:33 Blood Type A Positive 06/28/20 15:33 Antibody Screen NEGATIVE 06/28/20 15:33 Electrocardiogram Date: 06/26/20 Atrial paced rhythm at 60 bpm. Compared to EKG of 12/08/2018, no significant change was found. Chest X-Ray Date: 06/28/20 FINDINGS: There is a left-sided dual-chamber pacemaker. The heart is normal in size. The lungs are clear. No pleural effusions. No pneumothorax. Prior cholecystectomy. IMPRESSION: No acute process. Stress Test Date: 07/06/20 Type: nuclear Lexiscan nuclear cardiac stress test negative for ischemia. EF calculated greater than 70%. Gated SPECT images reveal normal myocardial thickening and wall motion. Other Testing Pacemaker Interrogation 04/03/20 Model: Medtronic Implantation date: 10/07/18 Indication: tachy-loli syndrome Battery/Longevity: 3.03 volts, est longevity of 11.9 yrs. Mode: AAIR/DDDR Pacin% atrial paced, 0% RV paced. Summary: Normal dual chamber pacemaker function. Next Remote Monitoring Transmission is scheduled for 07/10/2020.
[2020-06-28 16:02] LABS: Basophils # (auto) 0.02 K/uL (0-0.2); Basophils % (auto) 0.4 %; Eosinophils # (auto) 0.08 K/uL (0-0.5); Eosinophils % (auto) 1.7 %; Hematocrit (blood only) 39.5 % (37-47); Hemoglobin 13.2 g/dL (12.0-16.0); Immature Granulocytes # (auto) 0.01 K/uL (0.00-0.02); Immature Granulocytes % (auto) 0.2 %; Lymphocytes # (auto) 1.72 K/uL (1.2-3.4); Lymphocytes % (auto) 36.8 %; Mean Corpuscular Hemoglobin 30.3 pg (25-34); Mean Corpuscular Hgb Conc 33.4 g/dL (32-36); Mean Corpuscular Volume 90.8 fL (80-100); Monocytes # (auto) 0.57 K/uL (0.11-0.59); Monocytes % (auto) 12.2 %; Neutrophils # (auto) 2.28 K/uL (1.4-6.5); Neutrophils % (auto) 48.7 %; Platelet Count 204 K/uL (130-400); RDW Coefficient of Variation 13.3 % (11.5-14.5); RDW Standard Deviation 44.2 fL (36.4-46.3); Red Blood Count 4.35 M/uL (4.2-5.4); White Blood Count 4.68 K/uL (4.8-10.8)
[2020-06-28 16:05] LABS: Appearance Urine Clear (Clear); Bilirubin Urine Negative (Negative); Blood Urine Negative (Negative); Color Urine Yellow; Glucose Urine UA Negative (Negative); Ketones Urine Negative (Negative); Leukocyte Esterase Urine Negative (Negative); Nitrite Urine Negative (Negative); Protein Urine Negative (Negative); Specific Gravity Urine 1.016 (1.000-1.030); Urobilinogen Urine Negative (Negative)
--- NOTE | 2020-06-28 16:09 | XRay Report ---
XR chest Pre-admission PA/Lat HISTORY: Preop. COMPARISON: Chest 10/08/2018. FINDINGS: There is a left-sided dual-chamber pacemaker. The heart is normal in size. The lungs are cl ear. No pleural effusions. No pneumothorax. Prior cholecystectomy. IMPRESSION: No acute process. ACT 112: Negative or not required by law. Electronically signed by: Ahmet Sy M.D. 06/28/2020 4:08 PM
[2020-06-28 16:11] LABS: Albumin Level 3.7 gm/dl (3.4-5.0); BUN Creatinine Ratio 22.5 (10-20); Est GFR (African American) 77.1; Est GFR (Non-African American) 66.6; Potassium 4.1 mmol/L (3.5-5.1)
[2020-06-28 16:18] LABS: INR 2.5 (0.9-1.1); Partial Thromboplastin Ratio 1.5; Partial Thromboplastin Time 40.6 Seconds (21.0-31.0); Prothrombin Time 23.9 Seconds (9.0-12.0)
[2020-06-29 06:30] LABS: Estimated Average Glucose 117 mg/dl; Hemoglobin A1C 5.7 % (4.5-5.6)
--- NOTE | 2020-07-24 20:54 | History & Physical Report ---
Date of Service July 24, 2020 Assessment & Plan (1) Rotator cuff arthropathy of left shoulder: Patient has a massive, retracted rotator cuff tear that is not amenable to repair. She has significant dysfunction and pain with left shoulder. She has failed conservative measures as above. She would like to proceed with surgical intervention. Risks, benefits and alternatives to surgery including but not limited to infection, DVT, pain, stiffness, need for revision surgery, damage to blood vessels, damage to nerves, PE, , were discussed with the patient and they wish to proceed. Plan for left reverse total shoulder arthroplasty at [facility] on 07/26/20. All questions answered. She will follow up post operatively. History of Present Illness Chief Complaint: Left shoulder pain Primary Care Provider: Kandi Daley MD 74 year old female with PMHx significant for HTN, high cholesterol, JOSE, tachy- loli syndrome, pacemaker anticoagulated on warfarin, paroxysmal afib, who presents with ongoing left shoulder pain. Pain interfering with her daily activities. She has failed conservative measures including injection and physical therapy. She has a massive, irreparable rotator cuff tear. She would like to proceed with surgical intervention. Patient denies headaches, sweats, fevers, chills, double vision, blurred vision, cough, sore throat, dysphagia, chest pain, sob, wheezing, n/v/d/c, numbness, tingling, fatigue, urinary symptoms, mood disorders. ROS positive for left shoulder pain and stiffness. Allergies Allergy/AdvReac Type Severity Reaction Status Date / Time amoxicillin Allergy Unknown RASH Verified 10/06/18 14:39 erythromycin base Allergy Unknown RASH Verified 10/06/18 14:39 nitrofurantoin Allergy Unknown RASH Verified 10/06/18 14:39 sulfamethizole Allergy Unknown RASH Verified 10/06/18 14:39 adhesive AdvReac Unknown DIFFICULTY Verified 10/06/18 14:39 REMOVING AND LOCAL REDNESS Home Medications Medication Instructions Recorded Confirmed Type CALTRATE 1000 + D 1 tab PO QAM #0 07/30/16 06/26/20 History Fish Oil ([place]-3) 1 cap PO QAM #0 07/30/16 06/26/20 History amlodipine 2.5 mg PO QAM 10/06/18 06/26/20 History fluticasone propionate [Flonase 2 spray INTRANASAL DAILY PRN 10/06/18 06/26/20 History Allergy Relief] warfarin 2.5 mg PO QPM 10/06/18 06/26/20 History metoprolol succinate 50 mg PO QAM #30 tab 10/07/18 06/26/20 Rx atorvastatin 20 mg PO HS 06/26/20 06/26/20 History hydrochlorothiazide 37.5 mg PO QAM 06/26/20 06/26/20 History losartan 100 mg PO QAM 06/26/20 06/26/20 History potassium chloride 30 meq PO BID 06/26/20 06/26/20 History Past Med/Surg History Medical History (Updated 07/24/20 @ 20:55 by Mohan Denson) Chronic rhinitis Dyslipidemia Hypertension Osteoarthritis Osteopenia Pacemaker Follows with [facility] Paroxysmal A-fib Per cardiology notes, "diagnosed Fall 2017 started on coumadin [id number] (Age, female, HTN); hospitalized 08/2018 due to AF; started on toprol after ppm; but continues to have a lot of pAF so started on amiodarone 11/12/2018- stopped 01/2020 due to tremors and elevated T4" Sleep apnea cpap Tachy-loli syndrome S/P PPM placement by Dr Cho 09/2018 (medtronic) Surgical History (Updated 06/28/20 @ 16:51 by Kumar Castellano) History of cataract surgery History of cholecystectomy History of colonoscopy History of dilatation and curettage History of endoscopy Status post biventricular cardiac pacemaker insertion 10/07/18, Medtronic. Social History Smoking Status: Never smoker Second Hand Exposure: No; Do You Dip or Chew Tobacco: No; Hx Alcohol Use: No Hx Substance Use: No Preferred Language: Yi Communication Ability: Effective Meter Engineer Required: No Beliefs That Will Affect Care: None Current Living Situation: Spouse Other Information That Helps Us Care for You: No Feels Safe at Home: Yes Safety Concerns: Feels Safe At This Time Assistive Devices: Glasses Review of Systems All systems reviewed & are unremarkable except as noted in HPI & below Physical Exam Constitutional: well developed and well nourished; no acute distress Eyes: PERRL, conjunctivae normal, anicteric sclerae ENMT: external ear and nose normal, oropharynx normal Neck: trachea midline, no thyromegaly Respiratory: normal respiratory effort, lungs clear to auscultation Cardiovascular: RRR, no murmur, no edema Musculoskeletal: Left shoulder: Tenderness anterolateral acromion. Active painful rom. Positive impingement signs. Strength-supraspinatus 2+/5, 3/5 infraspinatus, 4/5 subscapularis, + drop arm. FF actively 30 degrees 120 passively, abduction 10 degrees active, 100 degrees passively. Skin: no rashes, warm and dry Neurologic: patellar DTR's 2+ bilat, sensation intact Psychiatric: A+Ox3, euthymic affect Results & Data ([facility]) Laboratory Results Lab Results 06/28/20 06/28/20 06/28/20 Range/Units 15:33 15:33 15:33 WBC 4.68 L (4.8-10.8) K/uL RBC 4.35 (4.2-5.4) M/uL Hgb 13.2 (12.0-16.0) g/dL Hct 39.5 (37-47) % MCV 90.8 (80-100) fL MCH 30.3 (25-34) pg MCHC 33.4 (32-36) g/dL RDW Std Deviation 44.2 (36.4-46.3) fL RDW Coeff of Jerrod 13.3 (11.5-14.5) % Plt Count 204 (130-400) K/uL MPV 11.0 H (7.4-10.4) fL Immature Gran % (Auto) 0.2 % Neut % (Auto) 48.7 % Lymph % (Auto) 36.8 % [place] % (Auto) 12.2 % Eos % (Auto) 1.7 % Baso % (Auto) 0.4 % Neut # (Auto) 2.28 (1.4-6.5) K/uL Lymph # (Auto) 1.72 (1.2-3.4) K/uL [place] # (Auto) 0.57 (0.11-0.59) K/uL Eos # (Auto) 0.08 (0-0.5) K/uL Baso # (Auto) 0.02 (0-0.2) K/uL Immature Gran # (Auto) 0.01 (0.00-0.02) K/uL PT 23.9 H (9.0-12.0) Seconds INR 2.5 H (0.9-1.1) APTT 40.6 H (21.0-31.0) Seconds PTT Ratio 1.5 Sodium (136-145) mmol/L Potassium (3.5-5.1) mmol/L Chloride (98-107) mmol/L Carbon Dioxide (21-32) mmol/L Anion Gap (3-11) BUN (7-18) mg/dl Creatinine (0.6-1.2) mg/dl Est Cr Clr Drug Dosing ml/min Est GFR ( Amer) Est GFR (Non-Af Amer) BUN/Creatinine Ratio (10-20) Glucose (70-99) mg/dl Estimat Average Glucose mg/dl Hemoglobin A1c (4.5-5.6) % Calcium (8.5-10.1) mg/dl Albumin (3.4-5.0) gm/dl Urine Color Urine Appearance (Clear) Urine pH (4.5-7.5) Ur Specific [place] (1.000-1.030) Urine Protein (Negative) Urine Glucose (UA) (Negative) Urine Ketones (Negative) Urine Blood (Negative) Urine Nitrite (Negative) Urine Bilirubin (Negative) Urine Urobilinogen (Negative) Ur Leukocyte Esterase (Negative) Blood Type A Positive Antibody Screen NEGATIVE 06/28/20 06/28/20 06/28/20 Range/Units 15:33 15:33 15:33 WBC (4.8-10.8) K/uL RBC (4.2-5.4) M/uL Hgb (12.0-16.0) g/dL Hct (37-47) % MCV (80-100) fL MCH (25-34) pg MCHC (32-36) g/dL RDW Std Deviation (36.4-46.3) fL RDW Coeff of Jerrod (11.5-14.5) % Plt Count (130-400) K/uL MPV (7.4-10.4) fL Immature Gran % (Auto) % Neut % (Auto) % Lymph % (Auto) % [place] % (Auto) % Eos % (Auto) % Baso % (Auto) % Neut # (Auto) (1.4-6.5) K/uL Lymph # (Auto) (1.2-3.4) K/uL [place] # (Auto) (0.11-0.59) K/uL Eos # (Auto) (0-0.5) K/uL Baso # (Auto) (0-0.2) K/uL Immature Gran # (Auto) (0.00-0.02) K/uL PT (9.0-12.0) Seconds INR (0.9-1.1) APTT (21.0-31.0) Seconds PTT Ratio Sodium 140 (136-145) mmol/L Potassium 4.1 (3.5-5.1) mmol/L Chloride 107 (98-107) mmol/L Carbon Dioxide 27 (21-32) mmol/L Anion Gap 5.0 (3-11) BUN 19 H (7-18) mg/dl Creatinine 0.85 (0.6-1.2) mg/dl Est Cr Clr Drug Dosing 55.0 ml/min Est GFR ( Amer) 77.1 Est GFR (Non-Af Amer) 66.6 BUN/Creatinine Ratio 22.5 H (10-20) Glucose 93 (70-99) mg/dl Estimat Average Glucose 117 mg/dl Hemoglobin A1c 5.7 H (4.5-5.6) % Calcium 9.0 (8.5-10.1) mg/dl Albumin 3.7 (3.4-5.0) gm/dl Urine Color Yellow Urine Appearance Clear (Clear) Urine pH 7.0 (4.5-7.5) Ur Specific [place] 1.016 (1.000-1.030) Urine Protein Negative (Negative) Urine Glucose (UA) Negative (Negative) Urine Ketones Negative (Negative) Urine Blood Negative (Negative) Urine Nitrite Negative (Negative) Urine Bilirubin Negative (Negative) Urine Urobilinogen Negative (Negative) Ur Leukocyte Esterase Negative (Negative) Blood Type Antibody Screen Diagnostic Findings Left shoulder radiographs with cystic changes greater tuberosity. CT arthrogram demonstrates massive retracted rotator cuff tear
[~2020-07-26 08:52] MED LIST changes: +ACETAMINOPHEN 500 MG TAB PO SCH; +BUPIVACAINE 0.5 % 5 MG/1 ML PF 10ML VIAL ONE; -CLINDAMYCIN 600 MG/54 ML BAG IV SCH; +FAMOTIDINE 20 MG TAB PO SCH; +GABAPENTIN 300 MG CAP PO SCH; +METOCLOPRAMIDE HCL 10 MG TABLET PO SCH; +TRANEXAMIC ACID 1,000 MG **IV Intra-op IV SCH; +TRANEXAMIC ACID 1,000 MG **IV Pre-op IV SCH; -VANCOMYCIN HCL 1,000 MG/270 ML BAG IV SCH; +VANCOMYCIN HCL 1,250 MG in SODIUM CHLORIDE 0.9% 250 ML IV SCH; +dexAMETHasone 4 MG TAB PO SCH
[2020-07-26 09:54] LABS: INR 1.2 (0.9-1.1); Partial Thromboplastin Ratio 1.1; Partial Thromboplastin Time 29.8 Seconds (21.0-31.0); Prothrombin Time 11.8 Seconds (9.0-12.0)
--- NOTE | 2020-07-26 10:49 | History & Physical Bridge Note ---
Date of Service July 26, 2020 History & Physical Bridge Note I have examined the patient, reviewed the History & Physical and in the interval since the performance of the History & Physical I have noted the following changes of clinical significance: no changes noted
[2020-07-26] MEDS ORDERED: ONDANSETRON INJ 2 MG/ML 2 ML VIAL ONE (11:34)
[2020-07-26] MEDS ORDERED: LIDOCAINE HCL 2% 2 ML VIAL/AMP(20MG/ML) INFIL ONE (11:34)
[2020-07-26] MEDS ORDERED: PROPOFOL IV EMULSION 10 MG/ML 20 ML VIAL IV ONE (11:34)
[2020-07-26] MEDS ORDERED: fentaNYL citrate 100 MCG/2 ML VIAL ONE (11:36)
[2020-07-26] MEDS ORDERED: MIDAZOLAM HCL 1 MG/ML 2ML VIAL ONE (11:36)
[2020-07-26] MEDS ORDERED: ePHEDrine sulfate 50 MG/ML AMP ONE (14:33)
[2020-07-26] MEDS ORDERED: ePHEDrine sulfate 50 MG/ML SYR ONE (14:33)
--- NOTE | 2020-07-26 15:07 | Post Operative Brief Note ---
Immediate Post Op Note v1 Date of Surgery July 26, 2020 Pre & Post Diagnosis Operation Date: 07/26/20 11:20 Pre-Op Diagnosis: Left Shoulder Rotator Cuff Arthropathy, irreparable rotator cuff tear Post-Op Diagnosis: Left Shoulder Rotator Cuff Arthropathy, irreparable rotator cuff tear biceps tendinopathy, osteoporosis I identified the patient and participated in the time-out.: Yes Procedure Operation Date: 07/26/20 11:20 Actual Procedures p Left Shoulder Reverse Total Arthroplasty(Left), biceps tenodesis- Cachorro Tripathi MD Surgeon Cachorro Tripathi MD Educational Technology Specialist Tomi DELGADO Estimated Blood Loss 40 Findings Consistent with Post-Op Diagnosis Specimens Humeral head Drains Hemovac Drain Anesthesia Type General Regional Complications none Disposition Accompanied Patient To Recovery: No Disposition: Recovery Room Overlapping Procedure I was present for: the critical portions of procedure. Back up surgeon: was not required during procedure.
[2020-07-26] MEDS ORDERED: LABETALOL HCL IV 5 MG/ML 20ML IV PRN (15:12)
[2020-07-26] MEDS ORDERED: FLUMAZENIL 0.1 MG/1 ML 10 ML VIAL IV PRN (15:12)
[2020-07-26] MEDS ORDERED: ONDANSETRON INJ 2 MG/ML 2 ML VIAL IV PRN ×2 (15:12→16:46)
[2020-07-26] MEDS ORDERED: PROMETHAZINE HCL 12.5 MG in SODIUM CHLORIDE 0.9% 50 ML IV PRN (15:12)
[2020-07-26] MEDS ORDERED: ATROPINE SULFATE 0.1 MG/ML 10ML SYR IV PRN (15:12)
[2020-07-26] MEDS ORDERED: ePHEDrine sulfate 50 MG/ML AMP IV PRN (15:12)
[2020-07-26] MEDS ORDERED: fentaNYL citrate 100 MCG/2 ML VIAL IV PRN (15:12)
[2020-07-26] MEDS ORDERED: NALOXONE HCL 0.4 MG/1 ML VIAL/CARP IV PRN ×2 (15:12→16:46)
--- NOTE | 2020-07-26 16:11 | Anesthesiology Progress Note ---
Date of Service July 26, 2020 Anesthesia Post Procedure Vital Signs Vital Signs: Temp Pulse Pulse Resp BP Pulse Ox 07/26/20 16:05 36.2 C L 65 16 142/57 H 94 07/26/20 15:55 66 15 138/57 L 94 07/26/20 15:45 67 16 130/58 L 97 07/26/20 15:35 67 15 141/57 H 100 07/26/20 15:29 36 C L 67 16 135/55 L 100 07/26/20 09:26 36.5 C 66 20 165/71 H 100 Transfer of Care Handoff Completed per policy Notes Mental Status: alert / awake / arousable Patient Amnestic to Procedure: Yes Nausea / Vomiting: adequately controlled Pain: adequately controlled Airway Patency, RR, SpO2: stable & adequate BP & HR: stable & adequate Hydration State: stable & adequate Anesthetic Complications: no major complications apparent and Pt Satisfied with anesthetic care Notes: The patient is awake and comfortable. Her vital signs are stable.
--- NOTE | 2020-07-26 16:16 | XRay Report ---
LEFT SHOULDER 2 VIEWS CLINICAL HISTORY: Postoperative examination. FINDINGS: 2 portable views of the left shoulder are obtained. The skeletal structures are osteopenic. A left shoulder arthroplasty is in near-anatomic alignment. No acute fracture is identified. Mild de generative change is seen at the acromioclavicular joint. Skin clips, a surgical drain, subcutaneous gas, and soft tissue swelling are expected postoperative findings. The heart is enlarged. A 2-lead ca rdiac pacemaker is in place. Atelectasis is noted at the left lung base. IMPRESSION: Expected postoperative changes status post left shoulder arthroplasty procedure. No acute fracture is identified. Electronically signed by: Efrain Ashford M.D. 07/26/2020 4:15 PM
[2020-07-26] MEDS ORDERED: FLUTICASONE PROPIONATE NA SPR 16 GM BTL PRN (16:46)
[2020-07-26] MEDS ORDERED: bisacodyL 10 MG SUPP PR PRN (16:46)
[2020-07-26] MEDS ORDERED: HYDROmorphone INJ 0.5 MG/0.5 ML SYR IV PRN (16:46)
[2020-07-26] MEDS ORDERED: METOCLOPRAMIDE HCL INJ 5 MG/ML 2 ML VIAL IV PRN (16:46)
[2020-07-26] MEDS ORDERED: oxyCODONE HCL IR 5 MG TAB (IMMEDIATE RELEASE) PO PRN (16:46)
[2020-07-26] MEDS ORDERED: MAGNESIUM HYDROXIDE SUSP 30 ML UDC PO PRN (16:46)
[2020-07-26] MEDS ORDERED: VANCOMYCIN CONSULT ACTIVE PRN (16:46)
[2020-07-26] MEDS: SODIUM CHLORIDE 0.9% 1000ML 1,000 ML IV SCH (17:18)
--- NOTE | 2020-07-26 17:25 | Consultation ---
Date of Consultation July 26, 2020 Assessment & Plan (1) Status post reverse total arthroplasty of left shoulder: Post op day# 0 S/P Left reverse total shoulder arthroplasty by Dr Tripathi EB#40ml -pain management per ortho -wound management per ortho -PT/OT as appropriate -DVT prophylaxis per ortho -incentive spirometry -monitor H&H for acute blood loss anemia; pre-op Hgb: 13 (2) PAF (paroxysmal atrial fibrillation): On Coumadin. [id number] 4 Coumadin has been held since 07/20/2020 -Restart Coumadin 07/27/2020 per ortho. Coumadin clinic and recommended 3.75 mg x 2 days and resuming her normal 2.5 mg on Friday and 1.5 mg on all other days -Will need outpatient follow up with Coumadin clinic -Continue metoprolol (3) Tachy-loli syndrome: S/p pacemaker (4) Hypertension: -Continue amlodipine, losartan, metoprolol -Hold HCTZ for now (5) Dyslipidemia: -Continue atorvastatin (6) Sleep apnea: -CPAP at bedtime DVT Prophylaxis -SCDs per ortho Disposition per primary service Follows with Dr Daley for routine care Pt was seen and care coordinated with Dr Mejia. See addendum pt will be followed by Dr Nelson starting 07/27/20 Thank you for this consultation. We will follow the patient with you during their hospital stay. You can reach a member [facility] the [facility] 07/10 via pager @ [phone]. Supervising Physician Co-Signing Physician Notes Patient is a 74-year-old female with history of atrial fibrillation on Coumadin, dyslipidemia, sleep apnea and other medical problems was consulted for postop medical management after having left total shoulder arthroplasty by . Patient is doing well postop. She states having some numbness of left upper extremity postoperatively but denies any significant pain. She also denies any chest pain, shortness of air, dizziness, nausea, abdominal pain. On exam patient is moderately built and nourished, no apparent distress, normocephalic atraumatic, lungs are clear to auscultation, S1-S2, no murmur, abdomen soft, nontender, normal bowel sounds, no pedal edema, alert, awake, oriented, resting of focal deficits, left upper extremity in brace,+ drain. Patient is consulted for postop medical management. Monitor CBC for postop anemia. Wound care, activity as per primary team. On Coumadin for DVT prophylaxis. Continue bowel regimen to prevent constipation. Monitor INR. Continue metoprolol for A. fib. Resume HCTZ as able. I personally reviewed the record. Patient is interviewed and examined at bedside. Patient's care is coordinated with Sarai Burger PA-C. Please refer to the documentation above for details of patient's presentation and for discussion of other issues. History of Present Illness Requesting Physician: Dr Tripathi Reason for Consultation: Post op medical management Attending Physician: Cachorro Tripathi MD History of Present Illness Pt is 74 y/o F with PMH atrial fibrillation on Coumadin, HTN, dyslipidemia, sleep apnea seen in medical consultation s/p left reverse total shoulder arthroplasty today by Dr. Tripathi. Postop patient reports doing well. States left shoulder and left arm are still numb and denies any pain. Denies chest pain, shortness of breath, dizziness, nausea, vomiting. Currently sitting up eating dinner. Denies fever/chills, LOONEY, neck pain, palpitations, cough, sore throat, rhinorrhea, abdominal pain, extremity edema, rashes, urinary symptoms. Allergies Allergy/AdvReac Type Severity Reaction Status Date / Time amoxicillin Allergy Unknown RASH Verified 07/26/20 09:21 erythromycin base Allergy Unknown RASH Verified 07/26/20 09:21 nitrofurantoin Allergy Unknown RASH Verified 07/26/20 09:21 sulfamethizole Allergy Unknown RASH Verified 07/26/20 09:21 adhesive AdvReac Unknown DIFFICULTY Verified 07/26/20 09:21 REMOVING AND LOCAL REDNESS Home Medications Medication Instructions Recorded Confirmed Type CALTRATE 1000 + D 1 tab PO QAM #0 07/30/16 07/26/20 History Fish Oil (Napa-3) 1 cap PO QAM #0 07/30/16 07/26/20 History amlodipine 2.5 mg PO QAM 10/06/18 07/26/20 History fluticasone propionate [Flonase 2 spray INTRANASAL DAILY PRN 10/06/18 07/26/20 History Allergy Relief] warfarin 2.5 mg PO QPM 10/06/18 07/26/20 History metoprolol succinate 50 mg PO QAM #30 tab 10/07/18 07/26/20 Rx atorvastatin 20 mg PO HS 06/26/20 07/26/20 History hydrochlorothiazide 37.5 mg PO QAM 06/26/20 07/26/20 History losartan 100 mg PO QAM 06/26/20 07/26/20 History potassium chloride 30 meq PO BID 06/26/20 07/26/20 History Patient History Medical History (Updated 07/26/20 @ 18:49 by Sarai Burger PA-C) Chronic rhinitis Dyslipidemia Hypertension Osteoarthritis Osteopenia Pacemaker Follows with [facility] Paroxysmal A-fib Per cardiology notes, "diagnosed Fall 2017 started on coumadin [id number] (Age, female, HTN); hospitalized 08/2018 due to AF; started on toprol after ppm; but continues to have a lot of pAF so started on amiodarone 11/12/2018- stopped 01/2020 due to tremors and elevated T4" Sleep apnea cpap Tachy-loli syndrome S/P PPM placement by Dr Cho 09/2018 (medtronic) Surgical History (Updated 07/26/20 @ 18:49 by Sarai Burger PA-C) History of cataract surgery History of cholecystectomy History of colonoscopy History of dilatation and curettage History of endoscopy Status post biventricular cardiac pacemaker insertion 10/07/18, [employer]. Family History (Updated 07/26/20 @ 18:47 by Sarai Burger PA-C) Father Cancer multiple myeloma Daughter Breast cancer Mother Breast cancer Social History Smoking Status: Never smoker Second Hand Exposure: No; Do You Dip or Chew Tobacco: No; Hx Alcohol Use: No Hx Substance Use: No Preferred Language: Paraguayan Communication Ability: Effective Stereoptician Required: No Beliefs That Will Affect Care: None Current Living Situation: Spouse Other Information That Helps Us Care for You: No Feels Safe at Home: Yes Safety Concerns: Feels Safe At This Time Assistive Devices: Glasses Review of Systems Review of Systems: All systems reviewed & are unremarkable except as noted in HPI & below Physical Exam Physical Exam: General: no distress, obese Head: normocephalic, atraumatic Eyes: conjunctiva non-injected, anicteric ENT: normal inspection external ears, nose, mucous membranes moist Neck: supple, trachea midline Lungs: clear, no respiratory distress, no wheezing/rhonchi/rales CV: RRR, no pretibial edema Abd: normal BS, soft, non-tender Ext: no cyanosis, no calf tenderness; LUE:left shoulder +left arm in brace, +hemovac in place with serosanguineous drainage, limited ROM fingers at this time, distal pulses intact Neuro: A&O x 3, no focal deficits noted, normal affect Skin: warm, dry Results & Data ([facility]) Vital Signs (Past 12 Hours) Vital Signs Temp Pulse Pulse Pulse Resp BP Pulse Ox 07/26/20 17:16 37.2 C 70 16 133/76 92 07/26/20 16:45 36.5 C 65 14 121/73 93 07/26/20 16:30 67 16 137/60 95 07/26/20 16:15 65 17 143/62 H 93 07/26/20 16:05 36.2 C L 65 16 142/57 H 94 07/26/20 15:55 66 15 138/57 L 94 07/26/20 15:45 67 16 130/58 L 97 07/26/20 15:35 67 15 141/57 H 100 07/26/20 15:29 36 C L 67 16 135/55 L 100 07/26/20 09:26 36.5 C 66 20 165/71 H 100
--- NOTE | 2020-07-26 18:48 | Operative Report ---
Post Operative Report Pre & Post Diagnosis Operation Date: 07/26/20 11:20 Pre-Op Diagnosis: Left Shoulder Rotator Cuff Arthropathy, irreparable rotator cuff tear Post-Op Diagnosis: Left Shoulder Rotator Cuff Arthropathy, irreparable rotator cuff tear, biceps tendinopathy, osteoporosis I identified the patient and participated in the time-out.: Yes Procedure Operation Date: 07/26/20 11:20 Actual Procedures p Left Shoulder Reverse Total Arthroplasty(Left), biceps tenodesis- Cachorro Tripathi MD Surgeon Cachorro Tripathi MD Conference And Event Organiser Tomi DELGADO Estimated Blood Loss 40 Findings Consistent with Post-Op Diagnosis Specimens Humeral head Drains 2 Hemovac Anesthesia Type General Regional Complications None Disposition Accompanied Patient To Recovery: No Disposition: Recovery Room Indications 74-year-old female with left shoulder large retracted rotator cuff tear felt to be irreparable. Patient had injections physical therapy without any sustained relief with chronic pain. Patient has dysfunction of her shoulder with stiffness and limited use of her shoulder. Patient has a pacemaker on the ipsilateral side. Description of Procedure The patient was taken to the operating room and anesthetized under regional block and general anesthetic. The patient was positioned on the operating table in a 30 beachchair position with a towel roll under the medial border of the left scapula. The arm was draped free to be able to manipulate the shoulder as needed. The left upper extremity was prepped and draped in usual sterile fashion. Exam demonstrated some limited range of motion with passive forward elevation to 120 degrees and external rotation 40 degrees abduction 70 degrees.. An anterior deltopectoral approach was performed. A longitudinal incision was made in the deltopectoral interval. The skin was incised sharply. Subcutaneous flaps were elevated off the fascia. The cephalic vein was dissected out and retracted lateral with the deltoid. The clavipectoral fascia was divided at the lateral margin of the conjoined tendon and extended up to the CA ligament. The following findings were noted: The subscapularis tendon was intact. The supraspinatus infraspinatus tendon were torn teres minor was intact. Rotator cuff tear was retracted and irreparable. There was chronic biceps tenosynovitis. Biceps tendinopathy in the joint. Mild to moderate rotator cuff arthropathy of the joint. The upper centimeter of the pectoralis was released for inferior exposure. The biceps tendon findings demonstrated chronic tenosynovitis and proximal tendinopathy in the groove.. the biceps tendon was tenodesed to the pectoralis tendon with #2 FiberWire. The proximal biceps was resected. The subscapularis tendon was taken down off the lesser tuberosity using a subperiosteal dissection. A #1 Vicryl traction suture was placed into the free end of the subscapularis tendon and capsule. The subscapular muscle fibers were split longitudinally at the level of the circumflex vessels. The circumflex vessels were identified and tied off with silk ties and divided laterally. A Kitner elevator was used to free up the inferior fibers of the subscapularis off of the capsule. The axillary nerve was identified with a tug test and protected with a blunt [place] retractor between the nerve and the capsule. The subscapularis tendon was then taken down off of the lesser tuberosity subperiosteally and subperiosteal dissection was performed along the neck of the humerus as the arm is gradually externally rotated exposing the humeral head. The humeral head findings demonstrated no inferior osteophytes mild arthritic changes.. A Roe elevator was used to assist in releasing the capsule of the neck of the humerus. The capsule was divided with Macario scissors down to the glenoid released off the anterior glenoid and the rotator interval was released to meet the capsular release and a 360 release of the subscapularis was accomplished. A Fukuda retractor was placed into the joint retracting the humeral head posterior. Glenoid findings demonstrated a petite small glenoid.. The labrum and biceps tendon was resected. an anterior-inferior and posterior inferior capsular release were performed with electrocautery and a Roe elevator on bone with the axillary nerve protected inferiorly by the retractor. Attention was then taken to the humeral preparation. The cutting guide was placed into the humeral head. It was positioned at 20 of retroversion. Oscillating saw was used to resect the humeral head giving the cut above the level of the posterior rotator cuff insertion site. It was noted that the bone was osteoporotic. The humerus was then prepared for the stem. I used the ascend flex stem from [employer]. The sizing broaches were used followed by trial broaches up to a size 2B which had the appropriate fit and fill. The appropriate sized cut protector was placed. The humerus was then retracted posterior to the glenoid. The glenoid was sized for a 25 baseplate. The guide for the baseplate was positioned in a 10 inferior tilt and the central drill hole was made. The reamer for the 25 baseplate was used. The central drill was widened for the peg. It was noted that the bone of the glenoid was very osteoporotic. The aequalis hydroxyapatite-coated 25 mm baseplate was impacted into position. Fixation was actually fairly good considering the osteoporosis. The base plate was transfixed with superior and inferior locking screws with good fixation on those and and anterior and posterior compression screws with fair fixation of the posterior screw and little fixation with the anterior screw. The fan reamer was used for the 36 millimeter glenoid sphere. After irrigation the 36 standard glenoid sphere was impacted onto the baseplate and the screw was tightened. Attention was taken back to the humerus. The cut protector was removed and the plus or high offset humeral tray trial was assembled to the trial stem rotated appropriately to get bony coverage and then screwed in position. A trial reduction was performed. A +6 trial insert demonstrated good stability and no shuck. The trials were removed. 3 drill holes are made into the harder bone in the bicipital groove area and 3 #5 FiberWire sutures were placed transosseously. The canal was irrigated with pulsatile lavage saline solution. The final component was assembled. The final component was 2B long PTC stem assembled to the plus or high offset tray and a 36+6 reversed insert. I first placed cancellous bone graft around the stem to help with some the osteoporosis and the press-fit and then finally impacted the stem into the humerus. There was good fixation. It was reduced to the glenoid sphere. Stability was verified. Subscapularis was repaired with the #5 FiberWire sutures using Westley- Shaq suture technique. One of the 3 sutures were passed around the stem for additional support due to the osteoporosis. Lateral row soft tissue repair was performed with #2 FiberWire [id number] sutures. The pectoralis was repaired with #2 FiberWire [id number] sutures reinforcing the biceps tendon tenodesis. The arm was taken through a range of motion which demonstrated 130 degrees of flexion 90 was abduction external rotation 50 degrees without tension on repair.. The implant was stable through the range of motion tested. The wound was copiously irrigated. 2 Hemovac drains were placed. The deltopectoral interval was closed with [id number] #1 Vicryl sutures. The subcutaneous tissues were closed with 2-0 Vicryl sutures. The skin was closed with micah. Sterile dressings were applied and a shoulder immobilizer. Tomi DELGADO my physician entry level administrative assistant assisted in the procedure to the entire procedure including patient positioning arm positioning prepping and draping soft tissue retraction instrument management suture management and performed the subcutaneous and skin closure and will participate in the postoperative care of the patient. I attest to the content of the Intraoperative Record and any orders documented therein. Any exceptions are noted below.
[2020-07-26] MEDS: POTASSIUM CHLORIDE 10 MEQ TABCR PO SCH (20:26)
[2020-07-26] MEDS: DOCUSATE SODIUM 100 MG CAP PO SCH (20:26)
[2020-07-26] MEDS ORDERED: ATORVASTATIN 20 MG TAB PO SCH (21:00)
[2020-07-26] MEDS ORDERED: VANCOMYCIN HCL 1,250 MG in SODIUM CHLORIDE 0.9% 250 ML IV SCH (21:00)
[2020-07-26] MEDS ORDERED: SENNA 8.6 MG TAB PO SCH (21:00)
[2020-07-26] MEDS: ACETAMINOPHEN 500 MG TAB PO SCH (22:39)
[2020-07-27] MEDS: SODIUM CHLORIDE 0.9% 1000ML 1,000 ML IV SCH (02:57)
[2020-07-27] MEDS: ACETAMINOPHEN 500 MG TAB PO SCH ×2 (06:14→13:45)
--- NOTE | 2020-07-27 07:18 | Orthopedic Progress Note ---
Date of Service July 27, 2020 Assessment & Plan (1) Rotator cuff arthropathy of left shoulder: POD#1 left reverse TSA -Pain management -DVT prophylaxis-SCDs, warfarin -PT/OT-no shoulder ROM -AM labs pending -D/c planning-plan on discharge home when stable. Possibly later today pending her labs and therapy. Admission and Anticipated Discharge Date Admission Date: July 26, 2020 Subjective Patient resting in bed comfortably. Pain well controlled. No current complaints. Denies chest pain, sob, headache, dizziness. Review of Systems Review of Systems: All systems reviewed & are unremarkable except as noted in HPI & below Physical Exam Physical Exam: Left arm dressing is c/d/i. Sling in place. Fingers mobile with good manager transport strength. Some numbness thumb and index finger otherwise sensation intact. Constitutional: well developed and well nourished; no acute distress Results & Data ([facility]) Vital Signs (Past 12 Hours) Vital Signs Temp Pulse Resp BP Pulse Ox 07/27/20 03:07 36.8 C 67 16 108/61 96 07/26/20 22:25 36.7 C 67 16 109/64 95 07/26/20 19:45 36.5 C 68 16 99/61 L 97
[2020-07-27 07:27] LABS: Hematocrit (blood only) 34.6 % (37-47); Hemoglobin 11.5 g/dL (12.0-16.0); Immature Granulocytes # (auto) 0.03 K/uL (0.00-0.02); Immature Granulocytes % (auto) 0.3 %; Lymphocytes # (auto) 0.92 K/uL (1.2-3.4); Mean Corpuscular Hemoglobin 30.4 pg (25-34); Mean Corpuscular Hgb Conc 33.2 g/dL (32-36); Mean Corpuscular Volume 91.5 fL (80-100); Mean Platelet Volume 10.9 fL (7.4-10.4); Monocytes # (auto) 0.86 K/uL (0.11-0.59); Monocytes % (auto) 7.4 %; Neutrophils # (auto) 9.74 K/uL (1.4-6.5); Neutrophils % (auto) 84.3 %; Platelet Count 186 K/uL (130-400); RDW Coefficient of Variation 13.8 % (11.5-14.5); RDW Standard Deviation 45.7 fL (36.4-46.3); Red Blood Count 3.78 M/uL (4.2-5.4); White Blood Count 11.55 K/uL (4.8-10.8)
[2020-07-27 07:54] LABS: BUN Creatinine Ratio 17.6 (10-20); Calcium 8.5 mg/dl (8.5-10.1); Creatinine Clr Calc Pharmacy 42.7 ml/min; Est GFR (African American) 57.7 ml/min; Est GFR (Non-African American) 49.8 ml/min; Potassium 4.1 mmol/L (3.5-5.1)
[2020-07-27] MEDS: POTASSIUM CHLORIDE 10 MEQ TABCR PO SCH (08:34)
[2020-07-27] MEDS: DOCUSATE SODIUM 100 MG CAP PO SCH (08:35)
[2020-07-27] MEDS ORDERED: hydroCHLOROthiazide 25 MG TAB PO SCH (09:00)
[2020-07-27] MEDS ORDERED: MULTIVITAMIN TAB PO SCH (09:00)
[2020-07-27] MEDS ORDERED: amLODIPine BESYLATE 5 MG TAB PO SCH (09:00)
[2020-07-27] MEDS ORDERED: METOPROLOL SUCC 50MG EXT REL TAB PO SCH (09:00)
[2020-07-27] MEDS ORDERED: LOSARTAN POTASSIUM 50 MG TAB PO SCH (09:00)
--- NOTE | 2020-07-27 09:07 | Hospitalist Progress Note ---
Date of Service July 27, 2020 Assessment & Plan (1) Status post reverse total arthroplasty of left shoulder: Post op day# 1 S/P Left reverse total shoulder arthroplasty by Dr Deuce PEREIRA#40ml -Per ortho for pain control, wound care, anticoagulation and activities -Continue incentive spirometry, PT/OT when appropriate -monitor H&H for acute blood loss anemia; hgb today 11.5 (pre-op Hgb 13) consistent with mild post op blood loss anemia (2) PAF (paroxysmal atrial fibrillation): On Coumadin. [id number] 4 Coumadin has been held since 07/20/2020 -Restart Coumadin 07/27/2020 per ortho. Coumadin clinic and recommended 3.75 mg x 2 days and resuming her normal 2.5 mg on Friday and 1.5 mg on all other days -Will need outpatient follow up with Coumadin clinic -Continue metoprolol (3) Tachy-loli syndrome: S/p pacemaker (4) Hypertension: -Continue amlodipine, losartan, metoprolol -Hold HCTZ for now (5) Dyslipidemia: -Continue atorvastatin (6) Sleep apnea: -CPAP at bedtime DVT Prophylaxis -SCDs per ortho Disposition per primary service Follows with Dr Daley for routine care Patient seen in collaboration with Dr. Nelson. Please see addendum. Thank you for this consultation. We will follow the patient with you during their hospital stay. You can reach a [facility] 07/10 via pager @ [phone]. Admission and Anticipated Discharge Date Admission Date: July 26, 2020 Supervising Physician Co-Signing Physician Notes Attending addendum The patient was seen and examined in medical floor She is a status post left shoulder reverse total arthroplasty Remains medically stable and denies any significant symptoms On examination Sitting on a chair without any acute distress Hemodynamically stable Chest-clear to auscultate bilaterally Heart-S1, S2 regular Abdomen-benign Extremities-trace edema bilaterally Her labs, EKG and imaging studies reviewed Status post left shoulder surgery remains medically stable Agree with assessment and plan as outlined above by DAYSI Pittman DR Subjective Patient seen and examined in bedside chair in 324-1. Ambulating with PT without issue. Minimal left shoulder pain with movement. Has some paresthesias in left thumb and index finger but denies pain. Tolerating diet without issue. No nausea vomiting or abdominal pain. Denies any fever, chills, lightheadedness, visual changes, chest pain or shortness of breath. Review of Systems Review of Systems: At least ten systems reviewed and negative except as noted in the HPI. Physical Exam Physical Exam: General Appearance: WD/WN, vitals as above, NAD, sitting up in bed, pleasant, conversing easily Head: normocephalic, atraumatic Eyes: normal inspection, PERRL, conjunctivae normal, anicteric sclerae ENT: external ear and nose normal, oropharynx normal Neck: normal visual inspection, trachea midline, no thyromegaly Respiratory: normal respiratory effort, lungs clear to auscultation, no wheeze, rales, rhonchi. No accessory muscle use Cardiovascular: regular rate, rhythm, no murmur, normal peripheral pulses, no BLE edema Abdomen/GI: normal bowel sounds, soft, nontender, no hepatosplenomegaly Extremities/Musculoskeletal: +LUE with arm in brace, hemovac in place. No cyanosis or clubbing, extremities motor strength 5/5 Neurologic: PERRL, EOMI, accommodation nl, no face palsy, no dysarthria, CN's II-XI intact bilaterally and moves all extremities Psychiatric: A+Ox3, euthymic affect Skin: no rashes, normal color, warm/dry Results & Data Results & Data ([facility]) Vital Signs (Past 12 Hours) Vital Signs Temp Pulse Resp BP Pulse Ox 07/27/20 08:29 67 124/70 07/27/20 07:20 36.8 C 66 18 121/70 92 07/27/20 03:07 36.8 C 67 16 108/61 96 07/26/20 22:25 36.7 C 67 16 109/64 95 Laboratory Results Short CBC 07/27/20 Range/Units 07:08 WBC 11.55 H (4.8-10.8) K/uL Hgb 11.5 L (12.0-16.0) g/dL Hct 34.6 L (37-47) % Plt Count 186 (130-400) K/uL BMP 07/27/20 07:08 Sodium 142 Potassium 4.1 Chloride 110 H Carbon Dioxide 26 BUN 19 H Creatinine 1.08 Glucose 144 H Calcium 8.5 Diagnostic Findings Chest X-Ray 06/28/20 09:45 XR chest Pre-admission PA/Lat HISTORY: Preop. COMPARISON: Chest 10/08/2018. FINDINGS: There is a left-sided dual-chamber pacemaker. The heart is normal in size. The lungs are clear. No pleural effusions. No pneumothorax. Prior cholecystectomy. IMPRESSION: No acute process. ACT 112: Negative or not required by law. Electronically signed by: Ahmet Sy M.D. 06/28/2020 4:08 PM Shoulder X-Ray 07/26/20 16:02 LEFT SHOULDER 2 VIEWS CLINICAL HISTORY: Postoperative examination. FINDINGS: 2 portable views of the left shoulder are obtained. The skeletal structures are osteopenic. A left shoulder arthroplasty is in near-anatomic alignment. No acute fracture is identified. Mild degenerative change is seen at the acromioclavicular joint. Skin clips, a surgical drain, subcutaneous gas, and soft tissue swelling are expected postoperative findings. The heart is enlarged. A 2-lead cardiac pacemaker is in place. Atelectasis is noted at the left lung base. IMPRESSION: Expected postoperative changes status post left shoulder arthroplasty procedure. No acute fracture is identified. Electronically signed by: Efrain Ashford M.D. 07/26/2020 4:15 PM
[2020-07-27] MEDS ORDERED: WARFARIN SOD 1.25 MG TAB PO SCH (16:00)
[2020-07-27] MEDS ORDERED: WARFARIN SOD 2.5 MG TAB PO SCH ×2 (16:00)
[2020-07-28] MEDS ORDERED: WARFARIN SOD 1.25 MG TAB PO SCH (16:00)
[2020-07-29] MEDS ORDERED: WARFARIN SOD 1.25 MG TAB PO SCH (16:00)
--- NOTE | 2020-07-29 17:41 | Discharge Summary ---
Date of Service July 29, 2020 Admission HPI Per Admitting Provider 74 year old female with PMHx significant for HTN, high cholesterol, JOSE, tachy- loli syndrome, pacemaker anticoagulated on warfarin, paroxysmal afib, who presents with ongoing left shoulder pain. Pain interfering with her daily activities. She has failed conservative measures including injection and physical therapy. She has a massive, irreparable rotator cuff tear. She would like to proceed with surgical intervention. Patient denies headaches, sweats, fevers, chills, double vision, blurred vision, cough, sore throat, dysphagia, chest pain, sob, wheezing, n/v/d/c, numbness, tingling, fatigue, urinary symptoms, mood disorders. ROS positive for left shoulder pain and stiffness. Admission Exam Per Admitting Provider Constitutional: well developed and well nourished; no acute distress Eyes: PERRL, conjunctivae normal, anicteric sclerae ENMT: external ear and nose normal, oropharynx normal Neck: trachea midline, no thyromegaly Respiratory: normal respiratory effort, lungs clear to auscultation Cardiovascular: RRR, no murmur, no edema Musculoskeletal: Left shoulder: Tenderness anterolateral acromion. Active painful rom. Positive impingement signs. Strength-supraspinatus 2+/5, 3/5 infraspinatus, 4/5 subscapularis, + drop arm. FF actively 30 degrees 120 passively, abduction 10 degrees active, 100 degrees passively. Skin: no rashes, warm and dry Neurologic: patellar DTR's 2+ bilat, sensation intact Psychiatric: A+Ox3, euthymic affect Principal Diagnosis Left shoulder massive rotator cuff tear Discharge Exam Constitutional well developed and well nourished; no acute distress Eyes PERRL, conjunctivae normal, anicteric sclerae ENMT external ear and nose normal, oropharynx normal Neck trachea midline, no thyromegaly Respiratory normal respiratory effort, lungs clear to auscultation Cardiovascular RRR, no murmur, no edema Skin no rashes, warm and dry Neurologic patellar DTR's 2+ bilat, sensation intact Psychiatric A+Ox3, euthymic affect Discharge Data Allergies Allergy/AdvReac Type Severity Reaction Status Date / Time amoxicillin Allergy Unknown RASH Verified 07/26/20 09:21 erythromycin base Allergy Unknown RASH Verified 07/26/20 09:21 nitrofurantoin Allergy Unknown RASH Verified 07/26/20 09:21 sulfamethizole Allergy Unknown RASH Verified 07/26/20 09:21 adhesive AdvReac Unknown DIFFICULTY Verified 07/26/20 09:21 REMOVING AND LOCAL REDNESS Consultations 07/21/20 16:41 Consult Hospitalist Routine Procedures Performed Operation Date: 07/26/20 11:20 Actual Procedures p Left Shoulder Reverse Total Arthroplasty(Left) - Cachorro Tripathi MD Ordered Studies 07/26/20 05:00 US - OR guided needle placemen Routine Hospital Course (1) Rotator cuff arthropathy of left shoulder: Patient presented for same day admission following left reverse total shoulder arthroplasty on 07/26/20. She tolerated procedure well. The Patient had an uneventful hospital course. Post-operatively, her activity was progressed and well tolerated. They participated in PT without difficulty. Labs remained stable- lowest hemoglobin recorded: 11.[address] Jonah Mejia of medical service was consulted for medical management during admission. Pain controlled on oral medications. Please refer to daily progress notes and PT notes for complete details. After exam on 07/27/20, patient was felt to be stable for discharge home. Patient will f/u in the office in about 2 weeks for further evaluation including x-rays and incision check, sooner if having any issues or concerns. POD#1 left reverse TSA -Pain management -DVT prophylaxis-SCDs, warfarin -PT/OT-no shoulder ROM -AM labs pending -D/c planning-plan on discharge home when stable. Possibly later today pending her labs and therapy. Lab Results 06/28/20 06/28/20 06/28/20 Range/Units 15:33 15:33 15:33 WBC 4.68 L (4.8-10.8) K/uL RBC 4.35 (4.2-5.4) M/uL Hgb 13.2 (12.0-16.0) g/dL Hct 39.5 (37-47) % MCV 90.8 (80-100) fL MCH 30.3 (25-34) pg MCHC 33.4 (32-36) g/dL RDW Std Deviation 44.2 (36.4-46.3) fL RDW Coeff of Jerrod 13.3 (11.5-14.5) % Plt Count 204 (130-400) K/uL MPV 11.0 H (7.4-10.4) fL Immature Gran % (Auto) 0.2 % Neut % (Auto) 48.7 % Lymph % (Auto) 36.8 % [place] % (Auto) 12.2 % Eos % (Auto) 1.7 % Baso % (Auto) 0.4 % Neut # (Auto) 2.28 (1.4-6.5) K/uL Lymph # (Auto) 1.72 (1.2-3.4) K/uL [place] # (Auto) 0.57 (0.11-0.59) K/uL Eos # (Auto) 0.08 (0-0.5) K/uL Baso # (Auto) 0.02 (0-0.2) K/uL Immature Gran # (Auto) 0.01 (0.00-0.02) K/uL PT 23.9 H (9.0-12.0) Seconds INR 2.5 H (0.9-1.1) APTT 40.6 H (21.0-31.0) Seconds PTT Ratio 1.5 Sodium (136-145) mmol/L Potassium (3.5-5.1) mmol/L Chloride (98-107) mmol/L Carbon Dioxide (21-32) mmol/L Anion Gap (3-11) BUN (7-18) mg/dl Creatinine (0.6-1.2) mg/dl Est Cr Clr Drug Dosing ml/min Est GFR ( Amer) Est GFR (Non-Af Amer) BUN/Creatinine Ratio (10-20) Glucose (70-99) mg/dl Estimat Average Glucose mg/dl Hemoglobin A1c (4.5-5.6) % Calcium (8.5-10.1) mg/dl Albumin (3.4-5.0) gm/dl Urine Color Urine Appearance (Clear) Urine pH (4.5-7.5) Ur Specific [place] (1.000-1.030) Urine Protein (Negative) Urine Glucose (UA) (Negative) Urine Ketones (Negative) Urine Blood (Negative) Urine Nitrite (Negative) Urine Bilirubin (Negative) Urine Urobilinogen (Negative) Ur Leukocyte Esterase (Negative) COVID-19 Eval Order SARS-CoV-2, RNA, NAAT (NEGATIVE) Blood Type A Positive Antibody Screen NEGATIVE 06/28/20 06/28/20 06/28/20 Range/Units 15:33 15:33 15:33 WBC (4.8-10.8) K/uL RBC (4.2-5.4) M/uL Hgb (12.0-16.0) g/dL Hct (37-47) % MCV (80-100) fL MCH (25-34) pg MCHC (32-36) g/dL RDW Std Deviation (36.4-46.3) fL RDW Coeff of Jerrod (11.5-14.5) % Plt Count (130-400) K/uL MPV (7.4-10.4) fL Immature Gran % (Auto) % Neut % (Auto) % Lymph % (Auto) % [place] % (Auto) % Eos % (Auto) % Baso % (Auto) % Neut # (Auto) (1.4-6.5) K/uL Lymph # (Auto) (1.2-3.4) K/uL [place] # (Auto) (0.11-0.59) K/uL Eos # (Auto) (0-0.5) K/uL Baso # (Auto) (0-0.2) K/uL Immature Gran # (Auto) (0.00-0.02) K/uL PT (9.0-12.0) Seconds INR (0.9-1.1) APTT (21.0-31.0) Seconds PTT Ratio Sodium 140 (136-145) mmol/L Potassium 4.1 (3.5-5.1) mmol/L Chloride 107 (98-107) mmol/L Carbon Dioxide 27 (21-32) mmol/L Anion Gap 5.0 (3-11) BUN 19 H (7-18) mg/dl Creatinine 0.85 (0.6-1.2) mg/dl Est Cr Clr Drug Dosing 55.0 ml/min Est GFR ( Amer) 77.1 Est GFR (Non-Af Amer) 66.6 BUN/Creatinine Ratio 22.5 H (10-20) Glucose 93 (70-99) mg/dl Estimat Average Glucose 117 mg/dl Hemoglobin A1c 5.7 H (4.5-5.6) % Calcium 9.0 (8.5-10.1) mg/dl Albumin 3.7 (3.4-5.0) gm/dl Urine Color Yellow Urine Appearance Clear (Clear) Urine pH 7.0 (4.5-7.5) Ur Specific [place] 1.016 (1.000-1.030) Urine Protein Negative (Negative) Urine Glucose (UA) Negative (Negative) Urine Ketones Negative (Negative) Urine Blood Negative (Negative) Urine Nitrite Negative (Negative) Urine Bilirubin Negative (Negative) Urine Urobilinogen Negative (Negative) Ur Leukocyte Esterase Negative (Negative) COVID-19 Eval Order SARS-CoV-2, RNA, NAAT (NEGATIVE) Blood Type Antibody Screen 07/26/20 07/26/20 07/26/20 Range/Units 09:07 09:07 09:18 WBC (4.8-10.8) K/uL RBC (4.2-5.4) M/uL Hgb (12.0-16.0) g/dL Hct (37-47) % MCV (80-100) fL MCH (25-34) pg MCHC (32-36) g/dL RDW Std Deviation (36.4-46.3) fL RDW Coeff of Jerrod (11.5-14.5) % Plt Count (130-400) K/uL MPV (7.4-10.4) fL Immature Gran % (Auto) % Neut % (Auto) % Lymph % (Auto) % [place] % (Auto) % Eos % (Auto) % Baso % (Auto) % Neut # (Auto) (1.4-6.5) K/uL Lymph # (Auto) (1.2-3.4) K/uL [place] # (Auto) (0.11-0.59) K/uL Eos # (Auto) (0-0.5) K/uL Baso # (Auto) (0-0.2) K/uL Immature Gran # (Auto) (0.00-0.02) K/uL PT 11.8 (9.0-12.0) Seconds INR 1.2 H (0.9-1.1) APTT 29.8 (21.0-31.0) Seconds PTT Ratio 1.1 Sodium (136-145) mmol/L Potassium (3.5-5.1) mmol/L Chloride (98-107) mmol/L Carbon Dioxide (21-32) mmol/L Anion Gap (3-11) BUN (7-18) mg/dl Creatinine (0.6-1.2) mg/dl Est Cr Clr Drug Dosing ml/min Est GFR ( Amer) Est GFR (Non-Af Amer) BUN/Creatinine Ratio (10-20) Glucose (70-99) mg/dl Estimat Average Glucose mg/dl Hemoglobin A1c (4.5-5.6) % Calcium (8.5-10.1) mg/dl Albumin (3.4-5.0) gm/dl Urine Color Urine Appearance (Clear) Urine pH (4.5-7.5) Ur Specific [place] (1.000-1.030) Urine Protein (Negative) Urine Glucose (UA) (Negative) Urine Ketones (Negative) Urine Blood (Negative) Urine Nitrite (Negative) Urine Bilirubin (Negative) Urine Urobilinogen (Negative) Ur Leukocyte Esterase (Negative) COVID-19 Eval Order Covid19 [facility] SARS-CoV-2, RNA, NAAT NEGATIVE (NEGATIVE) Blood Type Antibody Screen 07/27/20 07/27/20 Range/Units 07:08 07:08 WBC 11.55 H (4.8-10.8) K/uL RBC 3.78 L (4.2-5.4) M/uL Hgb 11.5 L (12.0-16.0) g/dL Hct 34.6 L (37-47) % MCV 91.5 (80-100) fL MCH 30.4 (25-34) pg MCHC 33.2 (32-36) g/dL RDW Std Deviation 45.7 (36.4-46.3) fL RDW Coeff of Jerrod 13.8 (11.5-14.5) % Plt Count 186 (130-400) K/uL MPV 10.9 H (7.4-10.4) fL Immature Gran % (Auto) 0.3 % Neut % (Auto) 84.3 % Lymph % (Auto) 8.0 % [place] % (Auto) 7.4 % Eos % (Auto) 0.0 % Baso % (Auto) 0.0 % Neut # (Auto) 9.74 H (1.4-6.5) K/uL Lymph # (Auto) 0.92 L (1.2-3.4) K/uL [place] # (Auto) 0.86 H (0.11-0.59) K/uL Eos # (Auto) 0.00 (0-0.5) K/uL Baso # (Auto) 0.00 (0-0.2) K/uL Immature Gran # (Auto) 0.03 H (0.00-0.02) K/uL PT (9.0-12.0) Seconds INR (0.9-1.1) APTT (21.0-31.0) Seconds PTT Ratio Sodium 142 (136-145) mmol/L Potassium 4.1 (3.5-5.1) mmol/L Chloride 110 H (98-107) mmol/L Carbon Dioxide 26 (21-32) mmol/L Anion Gap 6.0 (3-11) BUN 19 H (7-18) mg/dl Creatinine 1.08 (0.6-1.2) mg/dl Est Cr Clr Drug Dosing 42.7 ml/min Est GFR ( Amer) 57.7 Est GFR (Non-Af Amer) 49.8 BUN/Creatinine Ratio 17.6 (10-20) Glucose 144 H (70-99) mg/dl Estimat Average Glucose mg/dl Hemoglobin A1c (4.5-5.6) % Calcium 8.5 (8.5-10.1) mg/dl Albumin (3.4-5.0) gm/dl Urine Color Urine Appearance (Clear) Urine pH (4.5-7.5) Ur Specific [place] (1.000-1.030) Urine Protein (Negative) Urine Glucose (UA) (Negative) Urine Ketones (Negative) Urine Blood (Negative) Urine Nitrite (Negative) Urine Bilirubin (Negative) Urine Urobilinogen (Negative) Ur Leukocyte Esterase (Negative) COVID-19 Eval Order SARS-CoV-2, RNA, NAAT (NEGATIVE) Blood Type Antibody Screen Total Time Total Time Spent Total Time Spent (In Minutes): 20 Discharge Plan Discharge Items Patient Disposition: Home - Self-Care Reason For Visit: Left Shoulder Rotator Cuff Arthropathy Discharge Diagnosis: Left shoulder rotator cuff arthropathy Activity: Per Instructions section Non-emergency contact: Surgeon Call non-emergency contact if: you have any medication questions, your pain is not controlled, your pain is worsening, your pain is concerning for you, you have a fever, your temperature is above 101, your wound has increased redness, your wound has increased drainage and your wound pain has increased Follow-up/Referrals: Kandi Daley MD [Primary Care Provider] - Diet: Regular Addtl Attending Provider Instructions: ACTIVITY RECOMMENDATIONS: SELF CARE INSTRUCTIONS AFTER TOTAL SHOULDER ARTHROPLASTY REVERSE A. You may do daily exercises as taught in physical therapy while in hospital. No lifting with the operative arm. B. You are to wear your sling/immobilizer at all times EXCEPT when performing your daily exercises and for hygiene purposes. C. You may perform dry, daily dressing changes. Please keep your incision covered. You may shower 48 hours after surgery. Do not apply soap or any ointment/lotions directly over incision. Do not soak incision in bath tub/swimming pool. D. You may use ice as needed to operative shoulder. SPECIAL CARE INSTRUCTIONS: VERY IMPORTANT TO READ AND REVIEW A. There are a few signs you need to watch for after you are home. Call [facility] at [phone] if you experience any of the followin. Increased severe shoulder pain. Some pain is expected especially when you exercise. 2. Increased swelling in you shoulder or arm; pain or swelling in either upper extremity. 3. Any fluid drainage from the incision. 4. Shortness of breath or chest pain. B. Please call [facility] at [phone] if you have any questions or concerns about your operation or recovery. C. Call your physician if: 1. Temperature is greater than 101 degrees (F). 2. Pain is not relieved by prescribed pain medications. 3. Increase drainage or redness from incision. 4. Unanswered questions or concerns. You should take 3.75 mg of your warfarin this evening and tomorrow and then resume your normal dosing. FOLLOW UP VISIT: Please call [facility] at [phone] to schedule a follow up appointment with Dr. Tripathi or his PA in 12-14 days from your surgery date. As discussed would recommend you schedule an appointment in our office with BRISEYDA Santos for your bone health. You can schedule appointment for about 6 weeks after your surgery. Call our main number to schedule appointment. Pending Studies at Discharge: No Stand-Alone Forms: My [facility], Opioid Pain Management, Smoking Cessation Medications and DC Order Prescriptions: New acetaminophen 500 mg Tablet 1,000 mg PO Q8 Qty: 60 RF: 0 oxycodone 5 mg Tablet 5 - 10 mg PO .Q4h-6h MDD 6 PRN (Reason: pain) Qty: 30 RF: 0 Continued CALTRATE 1000 + D 1 tab PO QAM Qty: 0 RF: 0 Fish Oil ([place]-3) 1 EA capsule 1 cap PO QAM Qty: 0 RF: 0 warfarin 2.5 mg Tablet 2.5 mg PO QPM RF: 0 amlodipine 2.5 mg Tablet 2.5 mg PO QAM RF: 0 fluticasone propionate [Flonase Allergy Relief] 50 mcg/actuation [place],Suspension 2 spray INTRANASAL DAILY PRN (Reason: Allergy Symptoms) RF: 0 metoprolol succinate 50 mg Tablet Extended Release 24 Hr 50 mg PO QAM Qty: 30 RF: 0 potassium chloride 10 mEq Capsule, Extended Release 30 meq PO BID RF: 0 atorvastatin 20 mg Tablet 20 mg PO HS RF: 0 hydrochlorothiazide 25 mg Tablet 37.5 mg PO QAM RF: 0 losartan 100 mg Tablet 100 mg PO QAM RF: 0 Discharge Orders: Discharge Order (Routine); Ordered 07/27/20 Ordered By: Mohan Hidalgo/Other Patient Handouts: DVT Post Op Prevention Admission Data Admit Date/Time: 07/26/20 16:02 Attending Provider: Cachorro Tripathi Admit Provider: Cachorro Tripathi Primary Care Provider: Kandi Daley Other Providers: Columba Arellano Manabendra Other Interventions: Discharge Summary Assessment (RN) Last Done: 07/27/20 13:59
[2020-07-30] MEDS ORDERED: WARFARIN SOD 2.5 MG TAB PO SCH (16:00)
== END 2020-07-27 15:08 | disposition home or self-care (01) | DRG 483 ==
LOC: ASU 08:52 → 3E 16:02